=== PATIENT | female | born 1945 | race Caucasian/White ===

== ENCOUNTER 2017-05-11 10:11 | Emergency (ER) | payer OTHER ==
[~2017-05-11] VITALS: Ht 167.6 cm; Wt 75.3 kg
[~2017-05-11 10:11] MED LIST: AMIODARONE HCL100 MG PO; APAP650 PO; ASA81BEC PO; ASPIR 8181 MG PO; ASPIRIN EC81 M1 PO; ATORVASTATIN CA80 MG PO; BAYER CHEWABLE81 MG PO; BETAPACE80 MG PO; CARDIZEM CD120 MG PO; CARDIZEM CD180 MG PO; CARDIZEM CD240 MG PO; COUMADIN 1MG TAB1 M1 PO; COUMADIN 2 MG TA2 M1 PO; COUMADIN 2.5MG2.5 M1 PO; COZAAR 50 MG TA50 M2 PO; EFFIENT10 MG PO; FLONASE 0.05%50 MCG NASAL; HYDROCHLOROTHIA25 M1 PO; HYDROXYZINE HCL25 M2 PO; KLOR-CON 1010 MEQ; KLOR-CON 1010 MEQ PO; LISINOPRIL2.5 MG PO; LOSARTAN POTAS100 MG PO; LOSARTAN POTASS50 MG PO; NITROSTAT0.4 MG SL; PLAVIX 75 MG TA75 M1 PO; POTASSIUM CHLO20 ME1 PO; POTASSIUM20 PO; SORINE 80 MG TA80 M1 PO; SORINE 80 MG TA80 MG PO; SOTALOL 120 MG120 M1 PO; TYLENOL325 MG PO; VITAMIN D1000 UNI1 PO; VITAMIN E400 UNIT PO; WARFARIN SODIUM6 MG PO; ZYRTEC10 M5 PO; ZYRTEC10 MG PO
[2017-05-11] MEDS ORDERED: COUMADIN 3 MG TA3 M1 PO (10:23)
[2017-05-11] MEDS ORDERED: CHLORTHALIDONE25 MG PO (10:25)
[2017-05-11] MEDS ORDERED: OMEPRAZOLE 20 M20 MG PO (10:25)
[2017-05-11] MEDS ORDERED: CLARITIN10 MG PO (10:26)
[2017-05-11 10:33] LABS: ABSOLUTE BASOPHILS 0.1 thou/uL (0.0-0.2); ABSOLUTE EOSINOPHILS 0.1 thou/uL (0.0-0.7); ABSOLUTE LYMPHOCYTES 1.5 thou/uL (0.8-5.3); ABSOLUTE MONOCYTES 0.9 thou/uL (0.0-1.2); ABSOLUTE NEUTROPHILS 5.2 thou/uL (1.6-8.1); BASOPHILS 0.8 %; EOSINOPHILS 0.7 %; HEMATOCRIT 42.1 % (37.0-47.0); LYMPHOCYTES 19.3 %; MCHC 33.2 g/dL (28.0-37.0); MCV 87.2 fL (80.0-100.0); MONOCYTES 11.3 %; MPV 7.6 fl. (7.2-11.1); NUCLEATED RBCS 0 /100WBC; PLATELET COUNT* 288 thou/uL (150-400); POLYS 67.9 %; RBC 4.84 mil/uL (4.20-5.00); RDW-CV 15.2 % (10.5-14.5); WBC 7.6 thou/uL (4.0-11.0)
[2017-05-11 10:40] LABS: ANION GAP 8 mmol/L (7-16); BUN 21 mg/dL (7-18); CALCIUM 9.4 mg/dL (8.5-10.1); CHLORIDE 105 mmol/L (98-107); CO2 29 mmol/L (21-32); GLUCOSE 91 mg/dL (70-99); SODIUM 142 mmol/L (136-145)
[2017-05-11 10:42] LABS: APTT 42.1 Seconds (25.0-31.3); INR 2.9; POTASSIUM 2.9 mmol/L (3.5-5.1); PROTIME 28.1 Seconds (9.20-11.50)
[2017-05-11 10:47] LABS: ALBUMIN 3.7 g/dL (3.4-5.0); ALKALINE PHOSPHATASE 104 U/L (46-116); LIPASE 176 U/L (73-393); SGOT 26 U/L (15-37); SGPT 38 U/L (30-65); TOTAL BILIRUBIN 0.4 mg/dL (<0.1-1.0); TOTAL PROTEIN 7.6 g/dL (6.4-8.2); TROPONIN-I LEVEL <0.06 ng/mL (<0.06)
[2017-05-11] MEDS ORDERED: ANTIVERT25 MG PO (11:53)
[2017-05-11] MEDS ORDERED: ZOFRAN ODT4 M1 PO (11:53)
[2017-05-11 12:06] VITALS: BP 142/79
--- NOTE | 2017-05-12 10:19 | EKG ---
[place] [address] ELECTROCARDIOGRAM REPORT Name: VI STEWARD [id number] Admission: 05/11/17 Attend Phys: Discharge: 05/11/17 Date of : 41 Report #: [id number] THIS REPORT FOR: //name// [facility] ED Test Date: 2017-05-11 Test Time: 10:17:06 Pat Name: VI STEWARD Department: Room: Gender: F Property Insurance Inspector: MEETA : 1945 Requested By: Galdino Fox Order Number: [id number] MD: Tommy Ibarra Measurements Intervals [place] Rate: 64 P: 47 IA: 190 QRS: -12 QRSD: 96 T: 57 QT: 468 QTc: 483 Interpretive Statements Sinus rhythm Borderline ST depression, anterolateral leads Compared to ECG 08/27/2015 11:45:57 no change Electronically Signed On 05-12-2017 10:18:59 EYE CLINIC MANAGER by Tommy Ibarra [email or web address] <ELECTRONICALLY SIGNED> By: Tommy Ibarra MD, [facility] 05/12/17 1018 1017 1017 Tommy Ibarra MD, FACC /EPI
== END 2017-05-11 12:07 | disposition home or self-care (01) ==
LOC: M.ERS 10:11
PROVIDERS: Emergency Medicine Emergency Medical Services
DX: H81.10 Benign paroxysmal vertigo, unspecified ear (principal); R00.2 Palpitations; I10 Essential (primary) hypertension; I48.91 Unspecified atrial fibrillation; E78.5 Hyperlipidemia, unspecified; Z90.710 Acquired absence of both cervix and uterus; Z98.890 Other specified postprocedural states; Z88.2 Allergy status to sulfonamides; Z88.1 Allergy status to other antibiotic agents

== ENCOUNTER 2018-04-08 11:08 | Inpatient (IN) | payer OTHER ==
[~2018-04-08] VITALS: Ht 165.1 cm; Wt 75.6 kg
[~2018-04-08 11:08] MED LIST changes: +ANTIVERT25 MG PO; +CHLORTHALIDONE25 MG PO; +CLARITIN10 MG PO; +COUMADIN 3 MG TA3 M1 PO; +OMEPRAZOLE 20 M20 M1 PO; +ZOFRAN ODT4 M1 PO
[2018-04-08 11:12] VITALS: BP 161/68
--- NOTE | 2018-04-08 11:49 | NUR ---
PT TO CT WARM BLANKET PROVIDED DAUGHTER (BRANT) AT BEDSIDE
[2018-04-08 11:51] LABS: ABSOLUTE BASOPHILS 0.1 thou/uL (0.0-0.2); ABSOLUTE EOSINOPHILS 0.1 thou/uL (0.0-0.7); ABSOLUTE LYMPHOCYTES 1.3 thou/uL (0.8-5.3); ABSOLUTE MONOCYTES 0.8 thou/uL (0.0-1.2); ABSOLUTE NEUTROPHILS 4.7 thou/uL (1.6-8.1); BASOPHILS 0.9 %; EOSINOPHILS 1.3 %; HEMATOCRIT 39.9 % (37.0-47.0); HEMOGLOBIN 13.2 gm/dL (12.0-15.0); MCH 28.4 pg (26.0-34.0); MCHC 33.1 g/dL (28.0-37.0); MCV 85.7 fL (80.0-100.0); MONOCYTES 12.1 %; MPV 8.5 fl. (7.2-11.1); NUCLEATED RBCS 0 /100WBC; PLATELET COUNT* 284 thou/uL (150-400); POLYS 66.7 %; RBC 4.66 mil/uL (4.20-5.00); RDW-CV 15.4 % (10.5-14.5)
[2018-04-08 11:54] LABS: ANION GAP 8 mmol/L (7-16); BUN 24 mg/dL (7-18); CALCIUM 9.3 mg/dL (8.5-10.1); CHLORIDE 105 mmol/L (98-107); CO2 26 mmol/L (21-32); GLUCOSE 80 mg/dL (70-99); POTASSIUM 4.1 mmol/L (3.5-5.1); SODIUM 139 mmol/L (136-145)
[2018-04-08 11:55] LABS: INR 2.1; PROTIME 21.4 Seconds (9.20-11.50)
[2018-04-08 12:00] LABS: ALBUMIN 3.2 g/dL (3.4-5.0); ALKALINE PHOSPHATASE 124 U/L (46-116); SGPT 34 U/L (30-65); TOTAL BILIRUBIN 0.4 mg/dL (<0.1-1.0); TOTAL PROTEIN 7.2 g/dL (6.4-8.2); TROPONIN-I LEVEL <0.06 ng/mL (<0.06)
[2018-04-08 12:01] LABS: SGOT 30 U/L (15-37)
--- NOTE | 2018-04-08 15:00 | EKG ---
[place] [address] ELECTROCARDIOGRAM REPORT Name: VI STEWARD Room: [place] [address] ADM IN [facility].#: [id number] Admission: 04/08/18 Attend Phys: Kamille Schneider Discharge: Date of : 41 Report #: [id number] THIS REPORT FOR: //name// [facility] ED Test Date: 2018-04-08 Test Time: 11:14:04 Pat Name: VI STEWARD Department: Room: [facility] Gender: F Dope Dry House Operator: : 1945 Requested By: Galdino Fox Order Number: [id number] MD: Tommy Ibarra Measurements Intervals [place] Rate: 60 P: 46 MO: 198 QRS: -3 QRSD: 94 T: 47 QT: 464 QTc: 464 Interpretive Statements Sinus rhythm Borderline ST depression, anterolateral leads Compared to ECG 05/11/2017 10:17:06 No significant changes Electronically Signed On 04-08-2018 15:00:18 HOSTESS by Tommy Ibarra [email or web address] <ELECTRONICALLY SIGNED> By: Tommy Ibarra MD, [facility] 04/08/18 1500 1114 13 Tommy Ibarra MD, [facility] /EPI
[2018-04-08 15:03] VITALS: BP 138/72
[2018-04-08 15:25] VITALS: BP 169/73
[2018-04-08] MEDS ORDERED: MIRALAX17 GM PO (16:07)
--- NOTE | 2018-04-08 16:10 | NUR ---
PT ARRIVED TO UNIT AT 1525, REPORT GIVEN BY STORM RN IN ED, PTS DAUGHTER AT BEDSIDE. PT IS A&O X4, UP WITH STANDBY ASSIST, DENIES ANY PAIN, SOA, DIZZINESS, OR CHEST PAIN AT THIS TIME. LS CTA, 98% RA. BS ACTIVE X4, SOFT AND FLAT UPON PALPITATION, PT HAD LUNCH IN ED. 18 GAUGE IV IN RIGHT AC THAT IS ACCESSIBLE. PT IS REQUESTING TO BE DNR. APARTMENT MAINTENANCE TRACING SINUS RHYTHM. CARDOLOGY TO CONSULT.
[2018-04-08 19:30] VITALS: BP 120/55
[2018-04-09] VITALS: BP 103/38
[2018-04-09 02:55] LABS: INR 2.7; PROTIME 27.4 Seconds (9.20-11.50)
[2018-04-09 04:00] VITALS: BP 119/58
[2018-04-09 06:06] LABS: CHOLESTEROL 127 mg/dL (<200); HDL CHOLESTEROL 68 mg/dL (>40); LDL CHOLESTEROL 50 mg/dL (<100); TC:HDL 1.9 Ratio (Not establshd); TRIGLYCERIDE 47 mg/dL (<150); VLDL 9 mg/dL (<40)
[2018-04-09 06:07] LABS: SERUM ASSESSMENT Clear
--- NOTE | 2018-04-09 07:05 | NUR ---
VITALS WNL. SEE MAR. SEE CHARTING. FALL PRECATUIONS IN PLACE. HOURLY ROUNDING FOR SAFETY.
[2018-04-09 08:00] VITALS: BP 135/74
[2018-04-09 12:31] VITALS: BP 135/74
--- NOTE | 2018-04-09 13:33 | CON ---
[address] [address] CONSULTATION Name: VI STEWARD Room: [address] IN M.R.#: [id number] Admission: 04/08/18 Attend Phys: Kamille Schneider Discharge: Date of : 41 Report #: [id number] THIS REPORT FOR: //name// CC: Valentin Wiggins DATE OF SERVICE: 04/08/2018 HISTORY OF PRESENT ILLNESS: The patient is a 72-year-old single white female who I was asked to see in the hospital today after she complained of being dizzy. The patient has an extensive past medical history. She initially presented in 2013 with exertional dyspnea. Apparently, her echocardiogram and nuclear stress test showed no significant abnormalities. Because of exertional dyspnea she underwent cardiac catheterization electively by Dr. Ohara from the right radial artery. No ventriculogram was performed. There was a 50% narrowing of the proximal LAD, 90% narrowing of the mid LAD, circumflex had no significant disease, the right coronary artery had a 50% stenosis. Dr. Otto then inserted a drug-eluting stent in the mid LAD, which she tolerated well. The patient presented in 2013 with palpitations. She came to the hospital and was found to be in atrial fibrillation. She was placed on warfarin and amiodarone. Recently, she has been followed by Dr. Bowen. She had a repeat heart catheterization in 2014. She was complaining of persistent shortness of breath. Dr. Bowen performed a heart catheterization, left ventriculogram was not performed. The stent in the LAD had no restenosis. The circumflex had no significant stenosis. The right coronary artery had no significant stenosis. Medical therapy was recommended. She was last admitted here in 2015 with an episode of atrial fibrillation. She did not require cardioversion. She was actually just seen by my nurse practitioner last August. The patient does have a history of dizzy spells. She saw ENT who thought she had orthostatic hypotension. My nurse practitioner decreased the dose of her diltiazem. The patient did undergo a nuclear stress test last September that showed no evidence of ischemia or previous infarction with an ejection fraction of 80%. The patient states recently she has felt lightheaded. She feels as if the room is spinning. She feels lightheaded when she stands up. She did have an echocardiogram last September that showed ejection fraction of 60%. She does have occasional chest discomfort. She does get short of breath with exertion. She has had no bleeding. She has had no vomiting or diarrhea. She came to the Emergency Room and was admitted for further evaluation and treatment. PAST MEDICAL HISTORY: Significant for hysterectomy and appendectomy. She does have a history of hypertension and hyperlipidemia. No history of diabetes. CURRENT MEDICATIONS: Include amiodarone, aspirin, Lipitor, diltiazem, omeprazole, warfarin. She does [place] [address] CONSULTATION Name: VI STEWARD Room: [address] IN [facility].#: [id number] Admission: 04/08/18 Attend Phys: Kamille Schneider Discharge: Date of : 41 Report #: [id number] ALLERGIES: SHE HAS INTOLERANCE TO SULFA DRUGS. FAMILY HISTORY: Negative for heart disease. SOCIAL HISTORY: She is , lives with a daughter in [place], [place]. Quit smoking years ago. No alcohol abuse. REVIEW OF SYSTEMS: She has had no history of stroke. She has had a goiter in the past. No history of peptic ulcer disease, liver disease, kidney disease, cancer, psychiatric illness, chronic skin condition. PHYSICAL EXAMINATION: GENERAL: Revealed an elderly female lying in bed. She appeared in no acute distress. VITAL SIGNS: She has a blood pressure of 140/70, pulse was 70, she is afebrile. HEENT: She was anicteric, conjunctiva pink. Mucous membranes moist. NECK: Veins do not appear distended. No carotid bruits. Neck supple. CHEST: Clear to auscultation. CARDIAC: Regular rate and rhythm without murmur. ABDOMEN: Soft, nontender. EXTREMITIES: Had no edema. Dorsalis pedis pulse 2+ bilaterally. SKIN: Warm, dry. NEUROLOGIC: Nonfocal. LYMPH: No adenopathy. MUSCULOSKELETAL: No joint effusion. LABORATORY DATA: Her ECG showed a sinus rhythm with nonspecific ST-segment changes. Her workup in the Emergency Room today, she had a CT scan of the head performed that showed no acute abnormality. Chest x-ray showed no acute abnormality, normal heart size, clear lung herzog. Her lab work today, sodium 139, creatinine is 1.0. Troponin 0.06. Her TSH in June a year ago was 2.61. White blood cell count 7.0, hemoglobin 13.2. IMPRESSION AND RECOMMENDATIONS: 1. Lightheadedness, possibly related to amiodarone. I would consider discontinuing it at this time. 2. Coronary artery disease. Nuclear stress test last summer showed no significant ischemia. We will continue aspirin 81 mg a day. 3. Shortness of breath. Reason unclear. 4. Hypertension. The patient is on a calcium blanca. 5. Hyperlipidemia. The patient is on a statin drug. 6. History of goiter. The patient had a previous biopsy. 7. Paroxysmal atrial fibrillation. I would discontinue amiodarone at this time [address] [address] CONSULTATION Name: VI STEWARD Room: [address] IN ..#: [id number] Admission: 04/08/18 Attend Phys: Kamille Schneider Discharge: Date of : 41 Report #: [id number] because of possible side effects. The patient has been chronically anticoagulated with no history of bleeding. Her INR today was 2.1. <ELECTRONICALLY SIGNED> By: Tommy Ibarra MD, FACC 04/09/18 1333 1623 [id number] Ibarra MD, FACC /nt
--- NOTE | 2018-04-09 13:33 | CON ---
[address] [address] CONSULTATION Name: VI STEWARD Room: [address] ADM IN M.R.#: [id number] Admission: 04/08/18 Attend Phys: Kamille Schneider Discharge: Date of : 41 Report #: [id number] THIS REPORT FOR: //name// CC: Valentin Wiggins DATE OF SERVICE: 04/08/2018 HISTORY OF PRESENT ILLNESS: The patient is a 72-year-old single white female who I was asked to see in the hospital today after she complained of being dizzy. The patient has an extensive past medical history. She has had multiple hospitalizations here at [place]. She was seen by Dr. Ohara back in 2013. Dictation ends here. <ELECTRONICALLY SIGNED> By: Tommy Ibarra MD, FACC 04/09/18 1333 1613 [id number] Ibarra MD, FACC /nt
--- NOTE | 2018-04-09 15:19 | NUR ---
order received to discharge patinet home to self care. med rec, medication edcuation and need for follow up appointments covered with patient and daughter. iv and telemetry pack removed. hourly rrounding completd for patinet safety. patient taken via wheelchair with daughter present. hourly rounding completd for patinet safety. discharge time of 13:25.
== END 2018-04-09 13:25 | disposition home or self-care (01) | DRG 303 ==
LOC: M.ERS 11:08 → M.2W 12:14 → M.TBA-ER 12:14 → M.2W 15:17
PROVIDERS: Emergency Medicine Emergency Medical Services; Internal Medicine Cardiovascular Disease; ADMIT Internal Medicine
DX: I25.110 Atherosclerotic heart disease of native coronary artery with unstable angina pectoris (principal); I10 Essential (primary) hypertension; I48.0 Paroxysmal atrial fibrillation; E78.5 Hyperlipidemia, unspecified; Z95.5 Presence of coronary angioplasty implant and graft; Z90.710 Acquired absence of both cervix and uterus; Z90.49 Acquired absence of other specified parts of digestive tract; Z88.2 Allergy status to sulfonamides; Z88.8 Allergy status to other drugs, medicaments and biological substances; Z87.891 Personal history of nicotine dependence; Z79.82 Long term (current) use of aspirin; Z79.899 Other long term (current) drug therapy

== ENCOUNTER → 2018-05-20 | Outpatient (CLI) | payer OTHER ==
[~2018-05-20] MED LIST changes: +MIRALAX17 GM PO
== END ==
LOC: M.RAD 05-14 13:24
DX: Z12.31 Encounter for screening mammogram for malignant neoplasm of breast (principal); Z13.820 Encounter for screening for osteoporosis; Z78.0 Asymptomatic menopausal state

== ENCOUNTER 2019-06-28 15:10 | Inpatient (IN) | payer MEDICARE ==
[~2019-06-28] VITALS: Ht 167.6 cm; Wt 75.1 kg
[~2019-06-28 15:10] MED LIST changes: -VITAMIN D1000 UNI1 PO; +VITAMIN D31250 MCG PO
[2019-06-28 15:19] VITALS: BP 148/78
[2019-06-28 15:29] LABS: ABSOLUTE BASOPHILS 0.1 thou/uL (0.0-0.2); ABSOLUTE EOSINOPHILS 0.1 thou/uL (0.0-0.7); ABSOLUTE MONOCYTES 0.9 thou/uL (0.0-1.2); ABSOLUTE NEUTROPHILS 4.6 thou/uL (1.6-8.1); BASOPHILS 1.2 %; EOSINOPHILS 1.5 %; HEMATOCRIT 40.4 % (37.0-47.0); HEMOGLOBIN 13.6 gm/dL (12.0-15.0); LYMPHOCYTES 25.9 %; MCH 29.3 pg (26.0-34.0); MCHC 33.7 g/dL (28.0-37.0); MONOCYTES 11.7 %; NUCLEATED RBCS 0 /100WBC; PLATELET COUNT* 280 thou/uL (150-400); POLYS 59.7 %; RBC 4.64 mil/uL (4.20-5.00); RDW-CV 14.7 % (10.5-14.5); WBC 7.7 thou/uL (4.0-11.0)
[2019-06-28 15:40] LABS: CALCIUM 8.5 mg/dL (8.5-10.1); POTASSIUM 3.4 mmol/L (3.5-5.1)
[2019-06-28 15:54] LABS: ALBUMIN 3.6 g/dL (3.4-5.0); CK-MB MASS 0.9 ng/mL (<0.5-3.6); TOTAL BILIRUBIN 0.3 mg/dL (<0.1-1.0); TOTAL PROTEIN 7.4 g/dL (6.4-8.2)
[2019-06-28 15:55] LABS: APTT 45.3 Seconds (25.0-31.3); INR 4.1
--- NOTE | 2019-06-28 17:26 | CON ---
[address] [address] CONSULTATION Name: BINVI R Room: [place] [address] ADM IN .R.#: [id number] Admission: 06/28/19 Attend Phys: Linda Reyes MD Discharge: Date of : 41 Report #: [id number] THIS REPORT FOR: //name// cc: Tiago Hanson MD, Matthew W. MD ~ THIS REPORT FOR: //name// CC: Jaydon Hanson DATE OF SERVICE: 06/28/2019 CARDIOLOGY CONSULTATION HISTORY OF PRESENT ILLNESS: The patient is a 73-year-old single white female who came to the Emergency Room complaining of palpitations. The patient has an extensive past medical history. She presented with atrial fibrillation years ago that was detected on a 30-day monitor. She was placed on amiodarone and warfarin. She has been on warfarin since that time. She has had no significant bleeding. She does have her INR checked frequently. However in the past, she complained of lightheadedness and was taken off of the amiodarone. She was found to have coronary artery disease, had a stent placed in LAD in 2013. Repeat heart catheterization in 2014 showed the stent was widely patent. She does not exercise on a regular basis. For the past few weeks, she has noticed intermittent palpitations lasting about an hour. It can make her lightheaded. Today that persisted. She felt diaphoretic, lightheaded. Finally, came to the Emergency Room. She was found to be in atrial fibrillation. She is admitted for further evaluation and treatment. She denies any chest pressure radiating to her arms or jaw. She has had no syncope or bleeding. Denied any recent fever or cough. She does have seasonal allergy. PAST MEDICAL HISTORY: Significant for previous appendectomy, hysterectomy, hypertension, hyperlipidemia. MEDICATIONS: Include diltiazem, Imdur, Prilosec, Paxil, warfarin, Lipitor. ALLERGIES: SHE HAS AN ALLERGY TO SULFA DRUGS. FAMILY HISTORY: Negative for heart disease. SOCIAL HISTORY: She is single, lives with daughter in [place]. Quit smoking years ago. No alcohol abuse. REVIEW OF SYSTEMS: No history of stroke, GI bleeding, liver disease, kidney disease, cancer, psychiatric illness, [place] [address] CONSULTATION Name: VI STEWARD Room: [address] IN [facility]#: [id number] Admission: 06/28/19 Attend Phys: Linda Reyes MD Discharge: Date of : 41 Report #: [id number] PHYSICAL EXAMINATION: GENERAL: Revealed an elderly female, appeared in no distress. VITAL SIGNS: She had a blood pressure of 110/70, pulse is 120. She is afebrile. HEENT: She was anicteric. Conjunctivae pink. Mucous membranes moist. NECK: Veins nondistended. Neck supple. CHEST: Clear to auscultation. CARDIOVASCULAR: Irregular rhythm. No significant murmur. ABDOMEN: Soft. EXTREMITIES: Had no edema. SKIN: Warm and dry. NEUROLOGIC: Nonfocal. RADIOLOGICAL DATA: Her ECG on admission showed atrial fibrillation with increased ventricular response rate, nonspecific ST and T-wave change. Her workup in the Emergency Room today, she had a portable chest x-ray that showed normal heart size, clear lung herzog. LABORATORY DATA: Today, sodium 141, potassium 3.4, creatinine 1.0. Liver function studies were normal. Troponin 0.06. BNP 264. Her INR was 4.1. White blood cell count 7.7, hemoglobin 13.6. IMPRESSION AND RECOMMENDATIONS: 1. Atrial fibrillation. I would recommend starting sotalol. If she does not convert, we will consider cardioversion. I will continue anticoagulation, maintain an INR of 2-3. 2. Coronary artery disease. No significant angina. Nuclear stress test in 2018 showed no ischemia. 3. Hyperlipidemia. The patient is on a statin drug. 4. Previous tobacco abuse. <ELECTRONICALLY SIGNED> By: Tommy Ibarra MD, FACC 06/28/19 1726 1626 [id number] Ibarra MD, FACC /nt
[2019-06-28 19:27] VITALS: BP 118/69
[2019-06-28 20:00] VITALS: BP 115/68
[2019-06-28] MEDS ORDERED: TRAMADOL 50 MG50 MG PO (20:03)
[2019-06-28] MEDS ORDERED: ACETAMINOPHEN500 M1 PO (20:04)
[2019-06-28] MEDS ORDERED: IMDUR 30 MG TAB30 M1 PO (20:05)
[2019-06-28] MEDS ORDERED: PAXIL 20 MG TAB20 MG PO (20:06)
[2019-06-28] MEDS ORDERED: CALCIUM500 MG PO (20:06)
[2019-06-28 21:29] VITALS: BP 129/81
[2019-06-29] VITALS (7 sets, daily range): BP systolic 90–122; BP diastolic 45–62
[2019-06-29 05:29] LABS: HEMATOCRIT 37.5 % (37.0-47.0); HEMOGLOBIN 12.7 gm/dL (12.0-15.0); MCH 29.4 pg (26.0-34.0); MCV 86.5 fL (80.0-100.0); MPV 8.1 fl. (7.2-11.1); RBC 4.33 mil/uL (4.20-5.00); RDW-CV 14.4 % (10.5-14.5); WBC 7.1 thou/uL (4.0-11.0)
[2019-06-29 05:36] LABS: INR 3.2; PROTIME 31.5 Seconds (9.20-11.50)
[2019-06-29 05:44] LABS: ALBUMIN 3.1 g/dL (3.4-5.0); ALKALINE PHOSPHATASE 79 U/L (46-116); ANION GAP 11 mmol/L (7-16); BUN 19 mg/dL (7-18); CALCIUM 8.7 mg/dL (8.5-10.1); CHLORIDE 107 mmol/L (98-107); CHOLESTEROL 140 mg/dL (<200); CO2 25 mmol/L (21-32); GLUCOSE 98 mg/dL (70-99); HDL CHOLESTEROL 61 mg/dL (>40); LDL CHOLESTEROL 71 mg/dL (<100); MAGNESIUM 2.2 mg/dL (1.8-2.4); POTASSIUM 4.1 mmol/L (3.5-5.1); SGOT 15 U/L (15-37); SGPT 21 U/L (30-65); SODIUM 143 mmol/L (136-145); TC:HDL 2.3 Ratio (Not establshd); TOTAL BILIRUBIN 0.3 mg/dL (<0.1-1.0); TOTAL PROTEIN 6.6 g/dL (6.4-8.2); TRIGLYCERIDE 41 mg/dL (<150); VLDL 8 mg/dL (<40)
[2019-06-29 05:45] LABS: SERUM ASSESSMENT Clear
--- NOTE | 2019-06-29 07:11 | NUR ---
RECEIVED REPORT FROM OPTICAL SYSTEMS ENGINEERLISSY MCCARTHY AT 192. PT ARRIVED TO UNIT AT 1940. NURSING ASSESSMENT COMPLETED AT START OF SHIFT. PT AFIB ON BENCH ASSEMBLY INSPECTOR. HOURLY ROUNDING COMPLETED. PT C/O PAIN, PRN PAIN MEDICATION ADMINISTERED, EFFECTIVE. CALL LIGHT WITHIN REACH.
--- NOTE | 2019-06-29 11:39 | EKG ---
[place] [address] ELECTROCARDIOGRAM REPORT Name: VI STEWARD Room: [address] ADM IN .R.#: [id number] Admission: 06/28/19 Attend Phys: Linda Reyes, Discharge: Date of : 41 Date of Service: 06/28/19 1516 Report #: [id number] THIS REPORT FOR: //name// [facility] ED Test Date: 2019-06-28 Test Time: 15:16:01 Pat Name: VI STEWARD Department: Room: [facility] Gender: F Couturiere: LENNY : 1945 Requested By: Jaydon Mckinnon Order Number: [id number] MD: Brady Bowen Measurements Intervals [place] Rate: 129 P: [place]: QRS: -5 QRSD: 81 T: 127 QT: 296 QTc: 434 Interpretive Statements Atrial fibrillation Repol abnrm suggests ischemia, diffuse leads Compared to ECG 04/08/2018 11:14:04 Early repolarization now present Possible ischemia now present Sinus rhythm no longer present ST (T wave) deviation no longer present Electronically Signed On 06-29-2019 11:37:56 CDT by Brady Bowen [email or web address] <ELECTRONICALLY SIGNED> By: Brady Bowen MD, FACC 06/29/19 1137 1516 1516 Brady Bowen MD, FACC /EPI
--- NOTE | 2019-06-29 11:40 | EKG ---
[place] [address] ELECTROCARDIOGRAM REPORT Name: VI STEWARD Room: [address] IN [facility]#: [id number] Admission: 06/28/19 Attend Phys: Linda Reyes, Discharge: Date of : 41 Date of Service: 06/29/198[address] Report #: [id number] THIS REPORT FOR: //name// [facility] Test Date: 2019-06-29 Test Time: 08:12:18 Pat Name: VI STEWARD Department: Room: [facility] Gender: F Towel Inspector: : 1945 Requested By: Tommy Ibarra Order Number: [id number] Isaca MD: Brady Bowen Measurements Intervals [place] Rate: 46 P: 55 [place]: 188 QRS: 3 QRSD: 90 T: 87 QT: 482 QTc: 422 Interpretive Statements Sinus bradycardia Minimal ST depression, anterolateral leads Compared to ECG 04/08/2018 11:14:04 Sinus rhythm no longer present ST (T wave) deviation still present Electronically Signed On 06-29-2019 11:39:04 CDT by Brady Bowen [email or web address] <ELECTRONICALLY SIGNED> By: Brady Bowen MD, FACC 06/29/19 1139 1 1 Brady Bowen MD, [facility] /EPI
--- NOTE | 2019-06-29 14:28 | NUR ---
CM spoke with Pt's dtr via phone. Pt resides at home with her dtr, Kiki. Pt is independent. No DME. No hx of HH or SNF. Pt to have stress test today, anticipate dc to home tomorrow. Dtr to provide dc transportation. Following.
--- NOTE | 2019-06-29 19:06 | NUR ---
RECEIVED REPORT FROM ADA YUAN. ASSUMED CARE AROUND 0730. PT A&O X4. AM ASSESSMENT AND VITALS COMPLETED CHARTED. SOIL CONSERVATION TEACHER IN PLACE TRACING SB NOW WITH SOME PAC'S; CARDIOLOGY AWARE THAT PT CONVERTED. PT TOLERATING DIET. UP AD SAMANTHA. PLAN IS FOR PT TO HAVE STRESS TEST IN THE AM. PT HAS DENIED PAIN THIS SHIFT. PT CURRENTLY SITTING IN BEDSIDE CHAIR WATCHING TV. LOW FALL RISK PRECAUTIONS IN PLACE. CALL LIGHT IS WITHIN REACH. HOURLY ROUNDING PERFORMED.
[2019-06-30 02:07] LABS: GLYCOHEMOGLOBIN (HGB A1C) 5.5 % (4.8-5.6)
[2019-06-30 04:00] VITALS: BP 121/64
--- NOTE | 2019-06-30 06:52 | NUR ---
ASSUMED PT CARE AT 1910. NURSING ASSESSMENT COMPLETED AT START OF SHIFT. PT VOICED NO CONCERNS THIS SHIFT. SR/SB ON CASEWORKER INTAKE. CALL LIGHT WITHIN REACH.
[2019-06-30 07:21] LABS: HEMATOCRIT 35.4 % (37.0-47.0); HEMOGLOBIN 12.1 gm/dL (12.0-15.0); MCH 29.6 pg (26.0-34.0); MCHC 34.1 g/dL (28.0-37.0); MCV 86.8 fL (80.0-100.0); MPV 8.1 fl. (7.2-11.1); RBC 4.08 mil/uL (4.20-5.00); RDW-CV 14.7 % (10.5-14.5); WBC 5.6 thou/uL (4.0-11.0)
[2019-06-30 07:32] LABS: INR 2.2; PROTIME 21.8 Seconds (9.20-11.50)
[2019-06-30 07:37] LABS: CALCIUM 8.7 mg/dL (8.5-10.1); CREATININE 0.9 mg/dL (0.6-1.3); MAGNESIUM 2.1 mg/dL (1.8-2.4); POTASSIUM 4.2 mmol/L (3.5-5.1)
[2019-06-30 07:45] VITALS: BP 134/72
--- NOTE | 2019-06-30 08:54 | EKG ---
[place] [address] ELECTROCARDIOGRAM REPORT Name: VI STEWARD Room: [address] ADM IN [facility].#: [id number] Admission: 06/28/19 Attend Phys: Linda Reyes, Discharge: Date of : 41 Date of Service: 06/30/1903 Report #: [id number] THIS REPORT FOR: //name// [facility] Test Date: 2019-06-30 Test Time: 08:03:37 Pat Name: VI STEWARD Department: Room: [address] Gender: F Bag Turner: : 1945 Requested By: Tommy Ibrara Order Number: [id number] Isaac MD: Tommy Ibarra Measurements Intervals [place] Rate: 52 P: 60 AR: 188 QRS: 3 QRSD: 88 T: 67 QT: 474 QTc: 441 Interpretive Statements Sinus bradycardia Borderline repolarization abnormality Compared to ECG 06/29/2019 08:12:18 no change Electronically Signed On 06-30-2019 8:53:24 CDT by Tommy Ibarra [email or web address] <ELECTRONICALLY SIGNED> By: Tommy Ibarra MD, [facility] 06/30/19 0853 2 2 Tommy Ibarra MD, [facility] /EPI
--- NOTE | 2019-06-30 12:30 | NUR ---
Per VENTILATING EQUIPMENT INSTALLER, plan dc tomorrow to home. Pt to have stress test today.
--- NOTE | 2019-06-30 12:44 | NUR ---
Cardiac Rehab Atrial Fib education completed with receptive patient. Education included what is AF, signs and symptoms, treatments and possible complications. Patient states understanding of education.
--- NOTE | 2019-06-30 16:13 | CARDNUC ---
[place] [address] CARDIAC NUCLEAR IMAGING REPORT Name: BINVI R Room: [address] IN [facility]#: [id number] Admission: 06/28/19 Attend Phys: Linda Reyes, Discharge: Date of : 41 Date of Service: 06/30/19 1611 Report #: [id number] THIS REPORT FOR: cc: Tiago Hanson MD, Matthew W. MD Liston, Michael J. MD [facility] ~ APPROVED REPORT Imaging Protocol: Rest Tc-99m/Stress Tc-99m 1 day Study performed: 06/30/2019 10:01:16 Indication: Chest pain, AFIB with RVR, Lightheadedness, Diaphoresis. Patient Location: In-Patient Room #: 215 Stress Tech: Kiki Hawkins Stress Nurse: Hina Schulte RN NM Tech:BENI Omer Ht: 5 ft 6 in Wt: 158 lbs BSA: 1.81 m2 BMI: 25.49 Medical History Medical History: Angina, Atrial Fibrillation, CAD s/p stent, HTN, Hyperlipidemia, Smoking, RVR, Lightheadedness, Diaphoresis, Bradycardia, Hip pain. Medications: Atorvastatin, Sotalol. Allergies: Sulfamethoxazole, Trimethoprim. Cardiac Risk Factors: Age, HTN, Hyperlipidemia, Past Smoker, AFib with RVR, Bradycardia. Previous Cardiac Procedures: PCI. Pretest Chest Pain Characteristics: No chest pain Exercise History: Sedentary Physical Disabilities: Hip pain, unstable gait, recent AFib. Meds Held (24 hrs): None Resting Data Rest SPECT myocardial perfusion imaging was performed in supine position 30 minutes following the intravenous injection of 10.7 mCi of Tc-99m Sestamibi. Time of rest injection: 824 Date: 06/30/2019 The images were gated to evaluate regional wall motion and calculate left ventricular ejection fraction. Administration Route: [place] [address] CARDIAC NUCLEAR IMAGING REPORT Name: VI STEWARD Room: [address] IN [facility]#: [id number] Admission: 06/28/19 Attend Phys: Linda Reyes, Discharge: Date of : 41 Date of Service: 06/30/19 1611 Report #: [id number] Administration Site: Right AC Pharmacologic Stress Pharmacologic stress test was performed by injecting Regadenoson 0.4 mg IV push over 10-15 seconds immediately followed by the intravenous injection of 29.9 mCi of Tc-99m Sestamibi. Time of stress injection: 1009 Date: 06/30/2019 Administration Route: IV Administration Site: Right AC Gated Stress SPECT was performed 40 minutes after stress injection. The images were gated to evaluate regional wall motion and calculate left ventricular ejection fraction. Prone imaging was performed. Stress Test Details Stress Test: Pharmacologic stress testing performed using 0.4 mg of regadenoson per 5 mL given IV over 10 seconds. Reason for pharmacologic stress test: Recent AFib, hip pain, unstable gait.. HR Max Heart Rate (APMHR): 145 bpm Resting HR: 50 bpm Target HR (85% APMHR): 123 bpm Max HR Achieved: 86 bpm % of APMHR: 59 Recovery HR: 64 bpm BP Resting BP: 144/82 mmHg Max BP: 132/84 mmHg Recovery BP: 164/88 mmHg ECG Resting ECG: Sinus Rhythm Stress ECG: Sinus Rhythm ST Change: None Arrhythmia: None Recovery ECG: Sinus Rhythm Recovery ST Change: None Recovery Arrhythmia: None Clinical Reason for Termination: Completed protocol Stress Symptoms: Blurred vision, Dyspnea, Headache, Dizziness. Exercise duration: 00 min 00 sec Exercise capacity: 1.00 [place] [address] CARDIAC NUCLEAR IMAGING REPORT Name: BINVI Araceli Room: [address]#: [id number] Admission: 06/28/19 Attend Phys: Linda Reyes, Discharge: Date of : 41 Date of Service: 06/30/19 1611 Report #: [id number] The patient tolerated Lexiscan infusion without significant cardiac symptoms. Nurse Comments A 73 year old female impatient presented for a sitting Lexiscan r/t recent AFib with RVR, dizziness, diaphoresis. Test well tolerated. Recovery unremarkable. Patient was escorted by staff via wheelchair to Nuclear Medicine for imaging. Patient was stable and stated she felt good at that time. Stress ECG Conclusion The baseline 12-lead EKG shows sinus rhythm without significant ST segment abnormality. EKGs obtained during and post Lexiscan infusion show sinus rhythm without significant ST segment changes. There were no stress-induced arrhythmias. Study Quality Study: Good Artifact: No artifact Study Data At rest, the left ventricular ejection fraction was 65%.. Post stress, the left ventricular ejection was 67%.. TID = 0.90. Perfusion Perfusion images show no defect to suggest infarct or ischemia. Wall Motion On gated studies the left ventricle exhibits normal wall motion. Nuclear Conclusion ECG Findings: negative for ischemia Clinical Findings: negative for ischemia Nuclear Findings: negative for ischemia Exercise Capacity: not assessed Left Ventricular Function: normal Risk Study: low Perfusion images show no defect to suggest infarct or ischemia. Left ventricular systolic function appears normal on gated studies. This is a low risk study. <Conclusion> The baseline 12-lead EKG shows sinus rhythm without significant ST segment abnormality. EKGs obtained during and post [place] [address] CARDIAC NUCLEAR IMAGING REPORT Name: VI STEWARD Room: [address] [place] [facility]#: [id number] Admission: 06/28/19 Attend Phys: Linda Reyes, Discharge: Date of : 41 Date of Service: 06/30/19 1611 Report #: [id number] show sinus rhythm without significant ST segment changes. There were no stress-induced arrhythmias. <ELECTRONICALLY SIGNED> By: Brady Bowen MD, FACC 06/30/191610 10 10 Brady Bowen MD, FACC /INF
[2019-06-30 19:14] VITALS: BP 133/66
--- NOTE | 2019-06-30 19:16 | NUR ---
RECEIVED REPORT FROM ADA YUAN. ASSUMED CARE OF PT AROUND 0730. PT A&O X4. CASH ACCOUNTING CLERK IN PLACE. AM ASSESSMENT AND VITALS COMPLETED CHARTED. IV INTACT. MEDS PER EMAR. PT COMPLETED STRESS TEST THIS SHIFT. TOLERATING DIET. NO COMPLAINTS OF PAIN THIS SHIFT. PT TO GO HOME TOMORROW. PT CURRENTLY RESTING IN BEDSIDE CHAIR. FALL PRECATUIONS IN PLACE. CALL LIGHT IS WITHIN REACH. LOW FALL RISK PRECAUTIONS IN PLACE.
[2019-06-30 20:30] VITALS: BP 123/75
[2019-07-01] VITALS: BP 129/62
[2019-07-01 04:00] VITALS: BP 124/62
[2019-07-01 05:28] LABS: ABSOLUTE EOSINOPHILS 0.1 thou/uL (0.0-0.7); ABSOLUTE MONOCYTES 0.8 thou/uL (0.0-1.2); ABSOLUTE NEUTROPHILS 3.5 thou/uL (1.6-8.1); BASOPHILS 0.6 %; EOSINOPHILS 1.3 %; HEMATOCRIT 38.3 % (37.0-47.0); HEMOGLOBIN 12.6 gm/dL (12.0-15.0); LYMPHOCYTES 31.1 %; MCV 87.9 fL (80.0-100.0); MONOCYTES 12.7 %; MPV 8.3 fl. (7.2-11.1); NUCLEATED RBCS 0 /100WBC; PLATELET COUNT* 241 thou/uL (150-400); POLYS 54.3 %; RBC 4.36 mil/uL (4.20-5.00); RDW-CV 14.6 % (10.5-14.5); WBC 6.4 thou/uL (4.0-11.0)
[2019-07-01 05:36] LABS: INR 1.5; PROTIME 14.9 Seconds (9.20-11.50)
[2019-07-01 05:47] LABS: ALBUMIN 3.1 g/dL (3.4-5.0); CALCIUM 8.7 mg/dL (8.5-10.1); POTASSIUM 4.1 mmol/L (3.5-5.1); TOTAL BILIRUBIN 0.3 mg/dL (<0.1-1.0); TOTAL PROTEIN 6.5 g/dL (6.4-8.2)
[2019-07-01 07:00] VITALS: BP 136/80
--- NOTE | 2019-07-01 08:58 | NUR ---
INITAL ASSESSMENT COMPLETED CHARTED. VSS. TRACING SR ON MONITOR. PT DENIES PAIN, N/V/D, SOA, CP. NO NEW CONCERNS AT THIS TIME. HOURLY ROUNDING IN PLACE FOR PT SAFETY. CLWR.
[2019-07-01] MEDS ORDERED: SORINE 80 MG TA80 MG PO (09:08)
[2019-07-01 09:16] VITALS: BP 136/80
--- NOTE | 2019-07-01 13:29 | EKG ---
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
== END 2019-07-01 10:57 | disposition home or self-care (01) | DRG 309 ==
LOC: M.ERS 15:10 → M.2W 16:00 → M.TBA-ER 16:00 → M.2W 20:02
PROVIDERS: Family Medicine; Internal Medicine Cardiovascular Disease; Nurse Practitioner; ADMIT Internal Medicine
DX: I48.91 Unspecified atrial fibrillation (principal); D68.59 Other primary thrombophilia; I10 Essential (primary) hypertension; E78.5 Hyperlipidemia, unspecified; I25.10 Atherosclerotic heart disease of native coronary artery without angina pectoris; Z90.49 Acquired absence of other specified parts of digestive tract; Z90.710 Acquired absence of both cervix and uterus; Z88.2 Allergy status to sulfonamides; Z88.8 Allergy status to other drugs, medicaments and biological substances; Z95.5 Presence of coronary angioplasty implant and graft; Z79.899 Other long term (current) drug therapy

== ENCOUNTER 2019-08-01 15:17 | Inpatient (IN) | payer MEDICARE ==
[~2019-08-01] VITALS: Ht 167.6 cm; Wt 77.4 kg
[~2019-08-01 15:17] MED LIST changes: +ACETAMINOPHEN500 M1 PO; +CALCIUM500 MG PO; +IMDUR 30 MG TAB30 M1 PO; +PAXIL 20 MG TAB20 MG PO; +TRAMADOL 50 MG50 MG PO
[2019-08-01 15:21] VITALS: BP 118/60
[2019-08-01 15:41] LABS: ABSOLUTE BASOPHILS 0.1 thou/uL (0.0-0.2); ABSOLUTE EOSINOPHILS 0.1 thou/uL (0.0-0.7); ABSOLUTE MONOCYTES 0.9 thou/uL (0.0-1.2); WBC 8.2 thou/uL (4.0-11.0)
[2019-08-01 15:42] LABS: HEMOGLOBIN 13.6 gm/dL (12.0-15.0)
[2019-08-01 15:46] LABS: ABSOLUTE LYMPHOCYTES 2.3 thou/uL (0.8-5.3); ABSOLUTE NEUTROPHILS 4.8 thou/uL (1.6-8.1); BASOPHILS 1.4 %; EOSINOPHILS 1.3 %; HEMATOCRIT 39.8 % (37.0-47.0); LYMPHOCYTES 28.6 %; MCH 29.7 pg (26.0-34.0); MCHC 34.2 g/dL (28.0-37.0); MCV 86.9 fL (80.0-100.0); MONOCYTES 10.6 %; MPV 8.5 fl. (7.2-11.1); NUCLEATED RBCS 0 /100WBC; PLATELET COUNT* 262 thou/uL (150-400); POLYS 58.1 %; RBC 4.58 mil/uL (4.20-5.00); RDW-CV 14.4 % (10.5-14.5)
[2019-08-01 15:48] LABS: CALCIUM 8.5 mg/dL (8.5-10.1); CREATININE 1.2 mg/dL (0.6-1.3); POTASSIUM 3.8 mmol/L (3.5-5.1)
[2019-08-01 15:49] LABS: APTT 38.3 Seconds (25.0-31.3); INR 2.4
[2019-08-01 15:58] LABS: ALBUMIN 3.5 g/dL (3.4-5.0); MAGNESIUM 2.1 mg/dL (1.8-2.4); TOTAL BILIRUBIN 0.3 mg/dL (<0.1-1.0); TOTAL PROTEIN 7.3 g/dL (6.4-8.2)
[2019-08-01 17:41] VITALS: BP 115/80
[2019-08-01 18:00] VITALS: BP 138/78
[2019-08-01 18:30] VITALS: BP 138/78
--- NOTE | 2019-08-01 18:55 | NUR ---
PT A&OX4, UNCONTROLLED AFIB ON TELE, VS OTHERWISE STABLE, PT ARRIVED ON THE UNIT AROUND 1750, REC REPORT FROM LISSY MEZA FROM ER, ADMISSION COMPLETE, STAND BY ASSIST AMBULATING, ROOM AIR, CARDIZEM DRIP, 10MG/HR- TITRATE TO 5MG/HR IF HR<70 OR SYSTOLIC PB<100. HOURLY ROUNDING PERFORMED, POSSESSIONS AND CALL LIGHT WITHIN REACH.REPORTS RIGHT HIP PAIN ALLEVIATED BY TYLENOL AND TRAMADOL.
[2019-08-01 20:00] VITALS: BP 124/56
[2019-08-02 00:31] VITALS: BP 117/63
[2019-08-02 04:00] VITALS: BP 106/57
--- NOTE | 2019-08-02 04:36 | NUR ---
ASSUMED PT CARE AT APPROX 1930. PT IS AWAKE AND ORIENTED X4. PT IS TRACING AFIB ON THE CASH APPLICATION CLERK-RATE IS MORE CONTROLLED BETWEEN 80-100 AT 5mL/hr OF CARDIZEM. PT DENIES CHEST PAIN/DISCOMFORT. PT C/O THOUGH OF RT HIP PAIN THAT RADIATES TO THE RIGHT KNEE, PARTIALLY RELIEVED BY PAIN MEDS GIVEN PER MAR. NO ACUTE CHANGES OVERNIGHT. WILL CONTINUE TO MONITOR PT.
[2019-08-02 06:11] LABS: INR 2.7; PROTIME 26.7 Seconds (9.20-11.50)
[2019-08-02 08:00] VITALS: BP 109/65
[2019-08-02 11:30] VITALS: BP 107/59
--- NOTE | 2019-08-02 14:09 | EKG ---
[place] [address] ELECTROCARDIOGRAM REPORT Name: VI STEWARD Room: [address] ADM IN [facility].#: [id number] Admission: 08/01/19 Attend Phys: Montez Wiggins Discharge: Date of : 41 Date of Service: 08/01/19 1520 Report #: [id number] THIS REPORT FOR: //name// [facility] ED Test Date: 2019-08-01 Test Time: 15:20:27 Pat Name: VI STEWARD Department: Room: [facility] Gender: F Summer Clerk: BRIAN : 1945 Requested By: Galdino Fox Order Number: [id number] MD: Tommy Ibarra Measurements Intervals [place] Rate: 151 P: PA: QRS: -11 QRSD: 84 T: 139 QT: 299 QTc: 475 Interpretive Statements Atrial fibrillation with rapid V-rate Repolarization abnormality, prob rate related Compared to ECG 07/01/2019 08:47:45 Early repolarization now present Sinus bradycardia no longer present Electronically Signed On 08-02-2019 14:07:53 CDT by Tommy Ibarra [email or web address] <ELECTRONICALLY SIGNED> By: Tommy Ibarra MD, [facility] 08/02/19 1407 1520 1520 Tommy Ibarra MD, [facility] /EPI
--- NOTE | 2019-08-02 14:55 | NUR ---
ASSUMED CARE OF PATIENT THIS AM AT 0730. PATIENT IS ALERT AND ORIENTED X 4. SHE DENIES CHEST PAIN AND SOA. PATIENT IS UP TO BR WITH STANDBY ASSIST. PATIENT WAS ON CARDIZEM GTT THIS AM AT 5 ML HR. THIS AM'S HEART RHYTHM WAS A FIB HER HEART RHYTHM CONVERTED TO SINUS CAYLA AT ABOUT 10:[address] NOTIFIED AND AN EKG WAS DONE. CARDIOLOGY IN TO SEE PATIENT THIS AFTERNOON. PATIENT IS RESTING AT THIS TIME. WILL CONTINUE TO MONITOR. NO FALLS OR INJURY.
[2019-08-02 16:00] VITALS: BP 115/60
[2019-08-02 19:40] VITALS: BP 115/74
[2019-08-03] VITALS (7 sets, daily range): BP systolic 126–157; BP diastolic 49–74
[2019-08-03 03:07] LABS: T7 1.6 (1.2-4.9)
[2019-08-03 05:21] LABS: INR 2.1; PROTIME 20.7 Seconds (9.20-11.50)
--- NOTE | 2019-08-03 05:59 | NUR ---
PATIENT PROGRESSING TOWARDS GOALS: PATIENT REMAINS IN SR/SB. ANTICIPATING DISCHARGE HOME TODAY. RECEIVED ACETAMINOPHEN FOR TYLENOL WITH RELIEF. CALL LIGHT WITHIN REACH
--- NOTE | 2019-08-03 08:06 | CON ---
[address] [address] CONSULTATION Name: VI STEWARD Room: [address] IN M.R.#: [id number] Admission: 08/01/19 Attend Phys: Kamille Schneider Discharge: Date of : 41 Report #: [id number] THIS REPORT FOR: //name// cc: Tiago Hanson MD, Matthew W. MD ~ THIS REPORT FOR: //name// CC: Tiago Wiggins DATE OF SERVICE: 08/02/2019 CARDIOLOGY CONSULTATION HISTORY OF PRESENT ILLNESS: I was asked by Dr. Wiggins to see this 73-year-old white female in Cardiology consultation for evaluation and treatment of paroxysmal atrial fibrillation with a rapid ventricular response. This lady additionally has coronary artery disease and previous coronary stent. She is chronically anticoagulated with Coumadin. She chronically takes sotalol. She was here about a month ago and was with atrial fibrillation and was placed on sotalol 40 mg b.i.d. Apparently, she had been on amiodarone in the past. At this time, she came in with new onset of atrial fibrillation yesterday. She can feel her atrial fibrillation when she has it. She does not have chest pain, but she does have a very minimal chest discomfort, feeling when she has her atrial fibrillation that she can feel palpitations. She was placed on a diltiazem drip because she had a rapid ventricular response and she has converted to sinus rhythm now. When she was in atrial fibrillation, her EKG did show some ST-T abnormalities that were probably rate related. She did not have any frankly anginal chest pain, however. At that time, her heart rate was 151. Today, she is in sinus rhythm and her EKG shows heart rate of 47 that was immediately after the diltiazem was turned off. Immediately after, she converted. There were some minor nonspecific ST changes. She was in sinus bradycardia. PAST MEDICAL HISTORY: Essentially as described above. Her most previous atrial fibrillation episode was on 06/28/2019. She has history of hypertension. She has had multiple episodes of atrial fibrillation with rapid ventricular response. She also has hyperlipidemia. PAST SURGICAL HISTORY: She has had a hysterectomy and appendectomy. She had coronary stents x 2 in 2013. ALLERGIES: She is allergic to SULFA, TRIMETHOPRIM from Bactrim. HOME MEDICATIONS: Include: 1. P.r.n. Tylenol. 2. Calcium carbonate 500 [place] [address] CONSULTATION Name: VI STEWARD Araceli Room: [address]#: [id number] Admission: 08/01/19 Attend Phys: Kamille Schneider Discharge: Date of : 41 Report #: [id number] 3. Vitamin D 1000 units daily. 4. Omeprazole 20 mg daily. 5. Paxil 20 mg at bedtime. 6. MiraLax p.r.n. 7. Sotalol 40 mg b.i.d. 8. Tramadol 50 mg every 6 hours p.r.n. 9. Warfarin 5 mg on the weekend and 4 mg on Friday, Friday, Friday, and Friday. She was on atorvastatin in the past, but that has apparently been discontinued. FAMILY HISTORY: Unremarkable. SOCIAL HISTORY: She does not smoke, drink or use illegal drugs. REVIEW OF SYSTEMS: Essentially as per the history of present illness. Otherwise, her review of systems is negative for some 45 different complaints in 14-different system categories including central nervous system, general, respiratory, cardiovascular, endocrine, gastrointestinal, genitourinary, hematologic, lymphatic, allergic, immunologic, psychiatric, musculoskeletal, skin, eyes, ears, nose, mouth, and throat. Please see her review of system form for details and the negatives in review of systems. PHYSICAL EXAMINATION: GENERAL: She presented as a well-developed, well-nourished white female, in no acute distress. VITAL SIGNS: Pulse is 73 and regular, blood pressure is 106/57, respirations are 16 and regular, temperature is 98 degrees. HEENT: Her head is atraumatic. Eyes clear. NECK: Supple. There is no jugular venous distention or hepatojugular reflux. Thyroid is not enlarged. There is no adenopathy. SKIN: Warm and dry. Mucous membranes are moist. LUNGS: Clear to auscultation and percussion. HEART: Revealed normal first and second heart sound. There is soft S4. There is no S3. There are no murmurs, rubs, thrills, heaves or gallops. PMI is nondisplaced. ABDOMEN: Soft, flat and nontender. No palpable masses. No organomegaly. EXTREMITIES: Reveal no cyanosis, clubbing or edema. NEUROLOGIC: The patient mentated normally, talked normally, moved all extremities normally. LABORATORY DATA: Her chest x-ray demonstrated no acute process. IMPRESSION: 1. Paroxysmal atrial fibrillation with a rapid ventricular response. 2. [place] [address] CONSULTATION Name: VI STEWARD Room: [address] IN .[place]#: [id number] Admission: 08/01/19 Attend Phys: Kamille Schneider Discharge: Date of : 41 Report #: [id number] 3. Status post coronary artery stent. 4. Chronic anticoagulation with Coumadin. RECOMMENDATION: I would increase her sotalol to 80 mg in the morning and 40 mg at night. I continue the remainder of her medications as is. I would check her thyroid function to be sure she is not hyperthyroid. Thank you very much for asking me to see this patient. If there are any questions, please feel free to contact me. <ELECTRONICALLY SIGNED> By: Tal Jenkins MD, FACC 08/03/19 0806 1303 1442F. González Jenkins MD, FACC /nt
--- NOTE | 2019-08-03 15:05 | NUR ---
PT.KNOWN TO CM FROM PREVIOUS HOPSITAL ADMISSIONS. SHE LIVES WITH HER DAUGHTER,BRANT IN A MOBILE HOME. SHE SAID SHE WAS GETTING ALONG OK UNTIL HER AFIB FLARED UP AGAIN. NO USE OF DME. SHE [facility] SAID THEY WOULD BE GLAD TO TAKE HER BACK ON SERVICE IF NEEDED AT DISCHARGE. CALL [phone].
--- NOTE | 2019-08-03 16:15 | EKG ---
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: : 1945 Requested By: Montez Wiggins Order Number: [id number] Isaac MD: Valentin Lomeli Measurements Intervals [place] Rate: 47 P: 44 MO: 142 QRS: -7 QRSD: 94 T: 65 QT: 491 QTc: 434 Interpretive Statements Sinus bradycardia Borderline ST depression, anterolateral leads Compared to ECG 08/01/2019 15:20:27 ST (T wave) deviation now present Atrial fibrillation no longer present Early repolarization no longer present Electronically Signed On 08-03-2019 16:13:32 CDT by Valentin Lomeli [email or web address] <ELECTRONICALLY SIGNED> By: Valentin Lomeli MD, [facility] 08/03/19 1613 1034 1034 Valentin Lomeli MD, [facility] /EPI
--- NOTE | 2019-08-03 16:28 | EKG ---
[place] [address] ELECTROCARDIOGRAM REPORT Name: VI STEWARD Room: [address] ADM IN .R.#: [id number] Admission: 08/01/19 Attend Phys: Montez Wiggins Discharge: Date of : 41 Date of Service: 08/03/19 1211 Report #: [id number] THIS REPORT FOR: //name// [facility] Test Date: 2019-08-03 Test Time: 12:11:29 Pat Name: VI STEWARD Department: Room: [address] Gender: F Rn Acute Dialysis: MIMI : 1945 Requested By: Montez Wiggins Order Number: [id number] Isaac MD: Valentin Lomeli Measurements Intervals [place] Rate: 54 P: 49 MT: 187 QRS: -8 QRSD: 93 T: 24 QT: 509 QTc: 483 Interpretive Statements Sinus rhythm Borderline ST depression, lateral leads Compared to ECG 08/01/2019 15:20:27 ST (T wave) deviation now present Atrial fibrillation no longer present Early repolarization no longer present Electronically Signed On 08-03-2019 16:26:54 CDT by Valentin Lomeli [email or web address] <ELECTRONICALLY SIGNED> By: Valentin Lomeli MD, [facility] 08/03/19 1626 1211 1211 Valentin Lomeli MD, [facility] /EPI
[2019-08-03] MEDS ORDERED: LIPITOR40 MG PO (17:16)
[2019-08-03] MEDS ORDERED: SOTALOL80 MG PO (17:18)
[2019-08-03] MEDS ORDERED: COUMADIN 1MG TAB1 M1 PO (17:46)
--- NOTE | 2019-08-03 18:20 | NUR ---
PT. AOX4, SR ON TELE AND STABLE ON MONITOR, VSS, DENIES PAIN. HOURLY ROUNDING COMPLETED. CALL LIGHT AND PERSONAL BELONGINGS WITHIN REACH. DISCHARGE ORDERS RECEIVED. PIV DCED WITHOUT COMPLICATIONS. DISCHARGE SUMMARY EXPLAINED, EDUCATED PT ON MEDICATIONS, DIET AND ACTIVITY RESTRICTIONS. PT VERBALIZED UNDERSTANDING. PT. LEFT ROOM ON WC WITH NURSING STAFF, PICKED UP BY DAUGHTER BY CAR AT ER ENTRANCE. PT. LEFT WITH PERSONAL BELONGINGS.
== END 2019-08-03 23:18 | disposition home health service (06) | DRG 309 ==
LOC: M.ERS 15:17 → M.TBA-ER 16:26 → M.2W 16:26
PROVIDERS: Emergency Medicine Emergency Medical Services; Internal Medicine; ADMIT Internal Medicine
DX: I48.0 Paroxysmal atrial fibrillation (principal); D68.69 Other thrombophilia; I48.20 Chronic atrial fibrillation, unspecified; I10 Essential (primary) hypertension; E78.5 Hyperlipidemia, unspecified; I25.10 Atherosclerotic heart disease of native coronary artery without angina pectoris; Z79.01 Long term (current) use of anticoagulants; Z79.899 Other long term (current) drug therapy; Z90.710 Acquired absence of both cervix and uterus; Z90.49 Acquired absence of other specified parts of digestive tract; Z95.5 Presence of coronary angioplasty implant and graft; Z88.1 Allergy status to other antibiotic agents; Z88.8 Allergy status to other drugs, medicaments and biological substances

== ENCOUNTER 2019-08-23 18:57 | Inpatient (IN) | payer MEDICARE ==
[~2019-08-23] VITALS: Ht 167.6 cm; Wt 72.6 kg
[~2019-08-23 18:57] MED LIST changes: +LIPITOR40 MG PO; +SOTALOL80 MG PO
[2019-08-23 19:07] VITALS: BP 122/80
[2019-08-23 19:27] LABS: ABSOLUTE BASOPHILS 0.1 thou/uL (0.0-0.2); ABSOLUTE EOSINOPHILS 0.1 thou/uL (0.0-0.7); ABSOLUTE LYMPHOCYTES 2.7 thou/uL (0.8-5.3); ABSOLUTE MONOCYTES 0.8 thou/uL (0.0-1.2); ABSOLUTE NEUTROPHILS 4.3 thou/uL (1.6-8.1); BASOPHILS 1.3 %; EOSINOPHILS 1.7 %; HEMATOCRIT 40.8 % (37.0-47.0); HEMOGLOBIN 13.8 gm/dL (12.0-15.0); LYMPHOCYTES 33.2 %; MCH 29.5 pg (26.0-34.0); MCHC 33.8 g/dL (28.0-37.0); MCV 87.3 fL (80.0-100.0); MONOCYTES 10.3 %; MPV 8.6 fl. (7.2-11.1); NUCLEATED RBCS 0 /100WBC; PLATELET COUNT* 246 thou/uL (150-400); POLYS 53.5 %; RBC 4.67 mil/uL (4.20-5.00); RDW-CV 14.5 % (10.5-14.5); WBC 8.1 thou/uL (4.0-11.0)
[2019-08-23 19:37] LABS: CALCIUM 8.5 mg/dL (8.5-10.1); POTASSIUM 3.5 mmol/L (3.5-5.1)
[2019-08-23 19:39] LABS: APTT 37.3 Seconds (25.0-31.3); INR 2.3; PROTIME 23.3 Seconds (9.20-11.50)
[2019-08-23 19:51] LABS: ALBUMIN 3.5 g/dL (3.4-5.0); MAGNESIUM 2.1 mg/dL (1.8-2.4); TOTAL BILIRUBIN 0.2 mg/dL (<0.1-1.0); TOTAL PROTEIN 7.3 g/dL (6.4-8.2)
[2019-08-23 22:04] VITALS: BP 122/70
[2019-08-24] VITALS (8 sets, daily range): BP systolic 82–115; BP diastolic 46–69
--- NOTE | 2019-08-24 07:33 | NUR ---
CARTIZEM DRIP TITRATED TO 5ML/H, WITH HR STABLE. VSS. SEE MAR. SEE CHARTING.
--- NOTE | 2019-08-24 10:51 | EKG ---
[place] [address] ELECTROCARDIOGRAM REPORT Name: VI STEWARD Room: [address]R.#: [id number] Admission: 08/23/19 Attend Phys: Montez Wiggins Discharge: Date of : 41 Date of Service: 08/23/19 190 Report #: [id number] THIS REPORT FOR: //name// [facility] ED Test Date: 2019-08-23 Test Time: 19:01:55 Pat Name: VI STEWARD Department: Room: [facility] Gender: F Huc Ob: MR : 1945 Requested By: Jaydon Mckinnon Order Number: [id number] MD: Tommy Ibarra Measurements Intervals [place] Rate: 155 P: 0 [place]: 376 QRS: -13 QRSD: 88 T: 139 QT: 307 QTc: 493 Interpretive Statements atrial fibrillation Probable LVH with secondary repol abnrm Baseline wander in lead(s) V4 Compared to ECG 08/03/2019 12:11:29 Sinus rhythm no longer present Electronically Signed On 08-24-2019 10:50:48 CDT by Tommy Ibarra [email or web address] <ELECTRONICALLY SIGNED> By: Tommy Ibarra MD, [facility] 08/24/19 1050 00 00 Tommy Ibarra MD, [facility] /EPI
--- NOTE | 2019-08-24 12:48 | 2DMMODE ---
[place] [address] 2 D/M-MODE ECHOCARDIOGRAM Name: VI STEWARD Araceli Room: [address] [place]#: [id number] Admission: 08/23/19 Attend Phys: Montez Wiggins Discharge: Date of : 41 Date of Service: 08/24/19 1247 Report #: [id number] THIS REPORT FOR: cc: Tiago Hanson MD, Matthew W. MD Blick, David R. MD [facility] ~ APPROVED REPORT Study performed: 08/24/2019 09:38:26 EXAM: Comprehensive 2D, Doppler, and color-flow Echocardiogram Patient Location: In-Patient BSA: 1.80 HR: 54 bpm BP: 96/60 mmHg Other Information Study Quality: Good Indications Atrial Fibrillation 2D Dimensions IVSd: 11.09 (7-11mm) LVOT Diam: 18.80 (18-24mm) LVDd: 39.41 mm PWd: 11.73 (7-11mm) Ascending Ao: 30.43 (22-36mm) LVDs: 32.77 (25-40mm) Aortic Root: 25.26 mm Volumes Left Atrial Volume (Systole) LA ESV Index: 26.50 mL/m2 Aortic Valve AoV Peak Gilberto.: 1.23 m/s AO Peak Gr.: 6.10 mmHg LVOT Max P.03 mmHg AO Mean Gr.: 3.15 mmHg LVOT Mean P.92 mmHg LVOT Max V: 0.71 m/s AO V2 VTI: 18.28 cm LVOT Mean V: 0.44 m/s MERISSA (VTI): 1.69 cm2 LVOT V1 VTI: 11.11 cm Mitral Valve E/A Ratio: 3.06 [place] [address] 2 D/M-MODE ECHOCARDIOGRAM Name: VI STEWARD Room: [address] [place]#: [id number] Admission: 08/23/19 Attend Phys: Montez Wiggins Discharge: Date of : 41 Date of Service: 08/24/19 1247 Report #: [id number] MV Decel. Time: 161.61 ms MV E Max Gilberto.: 1.08 m/s MV PHT: 46.87 ms MVA (PHT): 4.69 cm2 TDI E/Lateral E': 9.00 E/Medial E': 12.00 Medial E' Gilberto.: 0.09 m/s Lateral E' Gilberto.: 0.12 m/s Pulmonary Valve PV Peak Gilberto.: 0.80 m/s PV Peak Gr.: 2.57 mmHg Tricuspid Valve RAP Estimate: 5.00 mmHg TR Peak Gr.: 20.76 mmHg RVSP: 25.76 mmHg PA Pressure: 25.76 mmHg Left Ventricle The left ventricle is normal size. There is normal LV segmental wall motion. There is normal left ventricular wall thickness. Left ventricular systolic function is normal. The left ventricular ejection fraction is within the normal range. LVEF is 55-60%. Right Ventricle The right ventricle is normal size. The right ventricular systolic function is normal. Atria The left atrium size is normal. The right atrium size is normal. Aortic Valve The aortic valve is normal in structure. No aortic regurgitation is present. There is no aortic valvular stenosis. Mitral Valve The mitral valve is normal in structure. There is no mitral valve regurgitation noted. No evidence of mitral valve stenosis. Tricuspid Valve The tricuspid valve is normal in structure. Trace tricuspid regurgitation. Pulmonic Valve Pulmonic valve is not well visualized.. There [place] [address] 2 D/M-MODE ECHOCARDIOGRAM Name: VI STEWARD Araceli Room: [address]#: [id number] Admission: 08/23/19 Attend Phys: Montez Wiggins Discharge: Date of : 41 Date of Service: 08/24/19 1247 Report #: [id number] regurgitation. Great Vessels The aortic root is normal in size. IVC is normal in size and collapses >50% with inspiration. Pericardium There is no pericardial effusion. <Conclusion> Left ventricular systolic function is normal. The left ventricular ejection fraction is within the normal range. <ELECTRONICALLY SIGNED> By: Tommy Ibarra MD, [facility] 08/24/19 1247 124 124 Tommy Ibarra MD, FAC /INF
--- NOTE | 2019-08-24 15:45 | NUR ---
Pt is A&O. Resides at home with her dtr. Independent. No DME. Pt is current with [facility] and would like to resume at dc with a nurse only. No hx of SNF. Goal is home, anticipate dc tomorrow. [facility] p:[phone] f:[phone]
--- NOTE | 2019-08-24 16:02 | NUR ---
assumed pt care report received from nurse pt is aox4. on ra. tracing afib on environmental monitoring specialist. heart rate varies from 75 to 120. cardizem drip transfusing through iv line. no complaint. pt's blood pressure is soft at lunch time. see chart. cardizem drip ws stopped per nurse practitioner's order. cardizem po to be given. pt has good appetite. up ad daniele. echo performed at bedside. will continue to monitor pt
--- NOTE | 2019-08-24 18:50 | NUR ---
pt heart rate increased in the 115s and 140s. still tracing afib on quality assurance monitor body. bp taken. 82/53. cardiology was paged to commnicate concern with increased heart rate. awaiting call back
--- NOTE | 2019-08-24 19:04 | NUR ---
new orders received from dr hammond for this patient. orders were written in chart and insert on Amprius. see chart. will proceed as ordered
--- NOTE | 2019-08-24 19:20 | NUR ---
BP RECHECKED IN LEFT ARM. 101/56. DIGOXIN GIVEN ORDERED. K BAG HANGED
[2019-08-25] VITALS (7 sets, daily range): BP systolic 103–138; BP diastolic 53–89
[2019-08-25 08:46] LABS: ABSOLUTE EOSINOPHILS 0.1 thou/uL (0.0-0.7); ABSOLUTE LYMPHOCYTES 1.8 thou/uL (0.8-5.3); ABSOLUTE MONOCYTES 0.6 thou/uL (0.0-1.2); ABSOLUTE NEUTROPHILS 2.9 thou/uL (1.6-8.1); BASOPHILS 0.8 %; EOSINOPHILS 1.5 %; HEMATOCRIT 40.4 % (37.0-47.0); HEMOGLOBIN 13.4 gm/dL (12.0-15.0); MCHC 33.1 g/dL (28.0-37.0); MCV 87.5 fL (80.0-100.0); MONOCYTES 10.5 %; MPV 8.3 fl. (7.2-11.1); NUCLEATED RBCS 0 /100WBC; PLATELET COUNT* 249 thou/uL (150-400); POLYS 54.2 %; RBC 4.62 mil/uL (4.20-5.00); RDW-CV 14.6 % (10.5-14.5); WBC 5.4 thou/uL (4.0-11.0)
[2019-08-25 08:58] LABS: ALBUMIN 3.2 g/dL (3.4-5.0); CALCIUM 8.4 mg/dL (8.5-10.1); CREATININE 0.9 mg/dL (0.6-1.3); POTASSIUM 4.1 mmol/L (3.5-5.1); TOTAL BILIRUBIN 0.4 mg/dL (<0.1-1.0); TOTAL PROTEIN 6.9 g/dL (6.4-8.2)
--- NOTE | 2019-08-25 08:59 | NUR ---
Per Cardiology, Pt to have pacer on John
--- NOTE | 2019-08-25 09:26 | NUR ---
PT IS AOX4 ON RA. VITAL SIGNS TAKEN. O2 SATURATION 96% ON RA. BP 110/54. TRACING SR ON SPECIALIST PHYSICIANS. PT HEART RYTHM CHANGED QUICKLY TO SINUS CAYLA . THEN PT HAD A PAUSE WHICH WAS FELT BY PATIENT. CARDIOLOGY NOTIFIED ON PAUSE AND STRIP WAS PRINTED AND PLACED IN CHART. PT IS ASYMPTOMATIC. NO NEEW ORDER RECEIVED.PLAN REMAINS TO PLACE PACEMAKER THE NEXT DAY. WILL CONTINUE TO MONITOR PT
[2019-08-25 12:16] LABS: INR 2.3
--- NOTE | 2019-08-25 13:11 | NUR ---
PT HEART RYTHM CONVERTED BACK TO AFIB AT 12:50PM. HEART RATE IN THE 130S. DESIRAE NURSE PRACTITINER CONTACTED. MESSAGE LEFT.
--- NOTE | 2019-08-25 13:46 | NUR ---
Cardiac Rehab Education on Permanent Pacemaker completed with receptive patient and daughter using PPM handout. Education included Atrial Fib, post proceedure care, activity restrictions and wound care. Questions answered to patient and daughter's satisfaction.
--- NOTE | 2019-08-25 14:14 | NUR ---
CONSENT FOR PACEMAKER PLACEMENT ORDERED. PT LEFT UNIT AT 1412 TO GO TO IR FOR PACEMAKER PLACEMENT ACCOMPANIED BY IR NURSES.
--- NOTE | 2019-08-25 16:46 | NUR ---
AT 1630 PT RETURNED FROM THE PROCEDURE. HERT MONITOR ATTACHED. SLING IS IN PLACE IN LEFT ARM. VSS. TRACING A PACED ON PHP MAGENTO DEVELOPER. HEART RYTHM 70. PT INSTRUCTED NOT TO LIFT LEFT ARM ABOVE HEAD. CALL LIGHT AT REACH. PT READY TO EAT DINER. DENIES PAIN. INCISION SITE IS DRY AND INTACT. WILL CONTINUE TO MONITOR
[2019-08-26] VITALS: BP 146/64
[2019-08-26 04:52] LABS: INR 1.5; PROTIME 14.7 Seconds (9.20-11.50)
[2019-08-26 08:00] VITALS: BP 138/76
--- NOTE | 2019-08-26 10:26 | EKG ---
[place] [address] ELECTROCARDIOGRAM REPORT Name: VI STEWARD Room: [address] ADM IN [facility].#: [id number] Admission: 08/25/19 Attend Phys: Montez Wiggins Discharge: Date of : 41 Date of Service: 08/26/19 0843 Report #: [id number] THIS REPORT FOR: //name// [facility] Test Date: 2019-08-26 Test Time: 08:43:13 Pat Name: VI STEWARD Department: Room: [address] Gender: F Noodle Maker: : 1945 Requested By: Tommy Ibarra Order Number: [id number] Isaac MD: Tommy Ibarra Measurements Intervals [place] Rate: 70 P: 10 [place]: 216 QRS: -14 QRSD: 86 T: QT: 384 QTc: 415 Interpretive Statements atrial paced rhythm Atrial premature complexes Borderline prolonged [place] interval Borderline repolarization abnormality Compared to ECG 08/23/2019 19:01:55 Atrial fibrillation no longer present Electronically Signed On 08-26-2019 10:25:59 CDT by Tommy Ibarra [email or web address] <ELECTRONICALLY SIGNED> By: Tommy Ibarra MD, [facility] 08/26/19 1025 0843 0843 Tommy Ibarra MD, [facility] /EPI
[2019-08-26 12:38] VITALS: BP 134/68
--- NOTE | 2019-08-26 13:11 | NUR ---
Per clau Jones placed yesterday, anticipate dc to home tomorrow.
--- NOTE | 2019-08-26 14:01 | CARD ---
[address] [address] CARDIAC CATH REPORT Name: BINVI Araceli Room: [address] IN .R.#: [id number] Admission: 08/25/19 Attend Phys: Kamille Schneider Discharge: Date of : 41 Report #: [id number] THIS REPORT FOR: //name// cc: Tiago Hanson MD, Matthew W. MD ~ APPROVED REPORT Study performed: 08/25/2019 13:49:12 Patient Status: In-Patient Room #: Event Personnel: Tommy Ibarra Glaze Grinder, Dani Covington RN RN, Emanuel Joseph RTR Scrub, Reshma Johnson RTR Monitor Exam: Cardioversion followed by Insertion of Dual Chamber Permanent Pacemaker Indications: Sick Sinus Syndrome/Tachy Faustino Syndrome The patient is a 73 year-old female with a history of Atrial Fibrillation. Patient Info Anticoagulant Therapy: warfarin Conscious Sedation Start time: 15:01 End Time: 15:56 Fentanyl 25 mcg Versed 1 mg Patient required Anesthesia for the cardioversion before pacemaker insertion. Propofol was given at 14:35 and case ended at 14:38. Two seperate time outs were performed. The cardioversion was done at 200 J synchronized. Implanted Devices: dual chamber mri compatible biotronic pacemaker and leads Explanted Devices: none Procedure The patient underwent informed consent. We discussed the details of the procedure including the risks, which include, but not limited to bleeding, infection, vascular damage, cardiac perforation, and pneumothorax. She understood these risks and was willing to proceed. As such, she was brought to the EP/Cardiac Catheterization laboratory in a fasting and sedated state and prepped and draped in a sterile fashion, received IV antibiotics prior to initiation of the procedure and a venogram was performed showing patency of [place] [address] CARDIAC CATH REPORT Name: VI STEWARD Room: [address] IN [facility].#: [id number] Admission: 08/25/19 Attend Phys: Kamille Schneider Discharge: Date of : 41 Report #: [id number] The patient underwent MAC anesthesia, with no anesthesia related complications. The patient underwent conscious sedation, with no related complications. The patient was brought to the EP/Cardiac Catheterization laboratory and the left chest and shoulder were prepped and draped in a sterile manner. During this case, Fluoroscopy and visipaque 15cc were used for imaging. The left subclavian region was infiltrated with 2% Lidocaine with Epinephrine subcutaneous anesthesia. A transverse incision was made in the left upper chest cavity. The subcutaneous pocket was formed via blunt dissection. Percutaneous venous access was achieved and an introducer sheath was inserted into the left Subclavian vein. Sheaths were positions using the modified Seldinger technique Through the introducer sheaths the atrial and ventricular lead wires were positioned in the right atrial appendage and right ventricular apex respectively. Utilizing fluoroscopic guidance, the atrial and ventricular lead wires were advanced over the wires and positioned in the right atria and right ventricle respectively. Capturing and sensing thresholds were verified. Since the patient was on warfarin, the pocket was irrigated with d-stat flowable at the end of the procedure. Electrode Parameters P Wave: 2.0 mv R Wave: 10 mv Atrial Threshold: 0.6 v @ 0.4 ms Ventricular Threshold: 0.7 v @ 0.4 ms Atrial Resistance: 495 ohm Ventricular Resistance: 510 ohm Dual Chamber The atrial and ventricular leads were then secured using 0 silk sutures. The subcutaneous pocket was irrigated with ancef antibiotic solution.The atrial and ventricular leads were attached to the appropriate receptacles on the pulse generator and set screws firmly tightened to insure adequate contact and stability. The lead and pulse generator were placed into the subcutaneous pocket. Sharp and sponge counts were confirmed to be correct. At this time the pocket was closed subcutaneously with a 0 Vicryl and 2.0 Vicryl and the skin was closed with a 4.0 Vicryl. The operative site was dressed in sterile fashion with dermabond and the patient was transferred to [place] [address] CARDIAC CATH REPORT Name: VI STEWARD Room: [address] IN ..#: [id number] Admission: 08/25/19 Attend Phys: Kamille Schneider Discharge: Date of : 41 Report #: [id number] Complications The patient tolerated the procedure well and there were no complications associated with the procedure. Findings Specimens Removed: No Estimated Blood Loss: 5ml Conclusion 1. successful cardioversion of atrial fibrillation to nsr 2. successful placement of a dual chamber pacemaker and leads <ELECTRONICALLY SIGNED> By: Tommy Ibarra MD, [facility] 08/26/19 1400 1400 1400Davikamille Ibarra MD, [facility] /INF
[2019-08-26 17:11] VITALS: BP 151/84
--- NOTE | 2019-08-26 18:48 | NUR ---
MARK RESTING IN BED. UP AD SAMANTHA. LEFT ARMM LIFTING RESTRICTION R/T PACEMAKER PLACEMENT ON 08/25/19. HOURLY ROUJDING COMPLETD FOR PATIENT SAFETY
[2019-08-26 19:49] VITALS: BP 125/71
[2019-08-27] VITALS: BP 115/69
[2019-08-27 04:00] VITALS: BP 150/70
--- NOTE | 2019-08-27 04:46 | NUR ---
ASSUMED PT CARE AT 1910. NURSING ASSESSMENT COMPLETED AT START OF SHIFT. A PACED ON AUTOMATIC DIE CUTTING MACHINE OPERATOR. HOURLY ROUNDING COMPLETED. CALL LIGHT WITHIN REACH. PT C/O BACK PAIN THIS SHIFT, ACTEAMINOPHEN ADMINISTERED. SEE EMAR FOR DOCUMENTATION.
[2019-08-27 06:10] LABS: ABSOLUTE EOSINOPHILS 0.1 thou/uL (0.0-0.7); ABSOLUTE LYMPHOCYTES 1.6 thou/uL (0.8-5.3); ABSOLUTE MONOCYTES 0.8 thou/uL (0.0-1.2); ABSOLUTE NEUTROPHILS 3.7 thou/uL (1.6-8.1); BASOPHILS 0.7 %; EOSINOPHILS 1.6 %; HEMATOCRIT 36.1 % (37.0-47.0); HEMOGLOBIN 12.4 gm/dL (12.0-15.0); MCH 29.8 pg (26.0-34.0); MCHC 34.4 g/dL (28.0-37.0); MCV 86.8 fL (80.0-100.0); MONOCYTES 12.6 %; MPV 8.8 fl. (7.2-11.1); NUCLEATED RBCS 0 /100WBC; PLATELET COUNT* 193 thou/uL (150-400); POLYS 60.1 %; RBC 4.16 mil/uL (4.20-5.00); RDW-CV 14.2 % (10.5-14.5); WBC 6.2 thou/uL (4.0-11.0)
[2019-08-27 06:15] LABS: INR 1.2; PROTIME 12.3 Seconds (9.20-11.50)
[2019-08-27 06:36] LABS: CALCIUM 8.6 mg/dL (8.5-10.1); CREATININE 0.8 mg/dL (0.6-1.3); POTASSIUM 3.8 mmol/L (3.5-5.1)
[2019-08-27 08:00] VITALS: BP 132/77
[2019-08-27 09:50] VITALS: BP 132/77
--- NOTE | 2019-08-27 10:31 | EKG ---
[place] [address] ELECTROCARDIOGRAM REPORT Name: VI STEWARD Room: [address] ADM IN [facility]#: [id number] Admission: 08/25/19 Attend Phys: Montez Wiggins Discharge: Date of : 41 Date of Service: 08/27/19914 Report #: [id number] THIS REPORT FOR: //name// [facility] Test Date: 2019-08-27 Test Time: 09:15:08 Pat Name: VI STEWARD Department: Room: [address] Gender: F Engineering Technical Writer: : 1945 Requested By: Debra Silva Order Number: [id number] Reading MD: Tommy Ibarra Measurements Intervals [place] Rate: 74 P: 49 [place]: 234 QRS: -6 QRSD: 93 T: QT: 412 QTc: 457 Interpretive Statements atrial paced rhythm Atrial premature complex Prolonged [place] interval Nonspecific repol abnormality, diffuse leads Compared to ECG 08/26/2019 08:43:13 no change Electronically Signed On 08-27-2019 10:30:25 CDT by Tommy Ibarra [email or web address] <ELECTRONICALLY SIGNED> By: Tommy Ibarra MD, [facility] 08/27/19 1030 4 Tommy Ibarra MD, [facility] /EPI
--- NOTE | 2019-08-27 10:34 | NUR ---
ORDER RECEIVED TO DISCHARGE MARK HOME TO SELF CARE. MED REC, MMEDICATION EDUCATION, STRROKE EDUCATION, AND NEED FOR FOLLOW UP APPOINTMENTS WITH CARDIOLOGY AND PRIMARY CARE PROVIDER COVCERED WITH MARK AND STATED UNDERSTOOD. MARK WAS ALSO EDUCATED REGARDING THE NEEDTO HAVE NO HEAVY LIFTING WITH LEFT ARM FOR 7 DAYS AND NO EXTENDING HER LEFT ARM OVER HER HEAD FOR 7 DAYS. IV AND TELEMETRY PACK REOMVED. JAYSON JONES COMPLETD FOR MARK SAFETY. AWAITING ARRIVAL OF HER DAUGHTER FOR TRANSPORTATION OT HOME. EXPECTED DC TIME OF 11:00.
== END 2019-08-27 11:30 | disposition home or self-care (01) | DRG 242 ==
LOC: M.ERS 18:57 → M.2W 20:10 → M.TBA-ER 20:10 → M.2W 22:12
PROVIDERS: Family Medicine; Internal Medicine; Nurse Practitioner; Registered Nurse; ADMIT Internal Medicine; ATTEND Internal Medicine
PROC: 02H63JZ Insertion of Pacemaker Lead into Right Atrium, Percutaneous Approach (ICD-10-PCS; principal; 2019-08-25)
PROC: 0JH606Z Insertion of Pacemaker, Dual Chamber into Chest Subcutaneous Tissue and Fascia, Open Approach (ICD-10-PCS; principal; 2019-08-25)
PROC: 02HK3JZ Insertion of Pacemaker Lead into Right Ventricle, Percutaneous Approach (ICD-10-PCS; principal; 2019-08-25)
DX: I49.5 Sick sinus syndrome (principal); I50.33 Acute on chronic diastolic (congestive) heart failure; D68.69 Other thrombophilia; I11.0 Hypertensive heart disease with heart failure; I48.0 Paroxysmal atrial fibrillation; I25.10 Atherosclerotic heart disease of native coronary artery without angina pectoris; E78.2 Mixed hyperlipidemia; Z90.710 Acquired absence of both cervix and uterus; Z95.5 Presence of coronary angioplasty implant and graft; Z88.2 Allergy status to sulfonamides; Z88.8 Allergy status to other drugs, medicaments and biological substances; Z91.14 Patient's other noncompliance with medication regimen; Z79.899 Other long term (current) drug therapy

== ENCOUNTER 2019-09-01 15:24 | Inpatient (IN) | payer MEDICARE ==
[~2019-09-01] VITALS: Ht 167.6 cm; Wt 71.2 kg
[2019-09-01 15:38] VITALS: BP 127/89
[2019-09-01 16:04] LABS: ABSOLUTE BASOPHILS 0.1 thou/uL (0.0-0.2); ABSOLUTE EOSINOPHILS 0.1 thou/uL (0.0-0.7); ABSOLUTE LYMPHOCYTES 2.3 thou/uL (0.8-5.3); ABSOLUTE NEUTROPHILS 4.1 thou/uL (1.6-8.1); BASOPHILS 1.4 %; EOSINOPHILS 1.8 %; HEMATOCRIT 38.6 % (37.0-47.0); LYMPHOCYTES 30.3 %; MCH 29.2 pg (26.0-34.0); MCHC 33.6 g/dL (28.0-37.0); MCV 86.8 fL (80.0-100.0); MONOCYTES 13.1 %; MPV 8.3 fl. (7.2-11.1); NUCLEATED RBCS 0 /100WBC; PLATELET COUNT* 251 thou/uL (150-400); POLYS 53.4 %; RBC 4.44 mil/uL (4.20-5.00); RDW-CV 14.7 % (10.5-14.5); WBC 7.6 thou/uL (4.0-11.0)
[2019-09-01 16:08] LABS: ANION GAP 8 mmol/L (7-16); BUN 16 mg/dL (7-18); CALCIUM 8.9 mg/dL (8.5-10.1); CHLORIDE 108 mmol/L (98-107); CO2 25 mmol/L (21-32); CREATININE 0.9 mg/dL (0.6-1.3); GLUCOSE 96 mg/dL (70-99); POTASSIUM 3.4 mmol/L (3.5-5.1); SODIUM 141 mmol/L (136-145)
[2019-09-01 16:09] LABS: APTT 31.7 Seconds (25.0-31.3); INR 1.9; PROTIME 19.1 Seconds (9.20-11.50)
[2019-09-01 16:22] LABS: ALBUMIN 3.3 g/dL (3.4-5.0); ALKALINE PHOSPHATASE 90 U/L (46-116); CK-MB MASS < 0.5 ng/mL (<0.5-3.6); LIPASE 138 U/L (73-393); NT-PRO BRAIN NAT PEPTIDE 1474 pg/mL (<300); SGOT 21 U/L (15-37); SGPT 21 U/L (30-65); TOTAL BILIRUBIN 0.3 mg/dL (<0.1-1.0)
[2019-09-01 20:51] VITALS: BP 134/56
[2019-09-01 22:45] VITALS: BP 134/56
[2019-09-01 23:00] VITALS: BP 146/98; BP 157/97
[2019-09-02 02:47] VITALS: BP 101/65
[2019-09-02 04:08] LABS: ABSOLUTE BASOPHILS 0.1 thou/uL (0.0-0.2); ABSOLUTE EOSINOPHILS 0.1 thou/uL (0.0-0.7); ABSOLUTE LYMPHOCYTES 2.3 thou/uL (0.8-5.3); ABSOLUTE MONOCYTES 0.9 thou/uL (0.0-1.2); ABSOLUTE NEUTROPHILS 3.8 thou/uL (1.6-8.1); BASOPHILS 0.7 %; EOSINOPHILS 1.7 %; HEMATOCRIT 35.9 % (37.0-47.0); HEMOGLOBIN 12.2 gm/dL (12.0-15.0); LYMPHOCYTES 32.4 %; MCH 29.5 pg (26.0-34.0); MCV 86.9 fL (80.0-100.0); MONOCYTES 12.2 %; MPV 8.3 fl. (7.2-11.1); NUCLEATED RBCS 0 /100WBC; PLATELET COUNT* 221 thou/uL (150-400); RBC 4.13 mil/uL (4.20-5.00); RDW-CV 14.7 % (10.5-14.5); WBC 7.2 thou/uL (4.0-11.0)
[2019-09-02 04:15] LABS: CALCIUM 8.4 mg/dL (8.5-10.1); POTASSIUM 3.2 mmol/L (3.5-5.1)
[2019-09-02 05:03] VITALS: BP 104/55
--- NOTE | 2019-09-02 06:51 | NUR ---
PATIENT REMAINS ON CARDIZEM GTT WITH IMPROVEMENT IN HEART RATE SINCE ADMISSION, ALTHOUGH PT REMAINS IN PACED RHYTHM WITH UNDERLYING AFIB. HR 80'S AT THIS TIME. PATIENT DENIES PAIN AND DISCOMFORT.
[2019-09-02 07:57] VITALS: BP 101/70
--- NOTE | 2019-09-02 08:36 | NUR ---
ASSUMED PT CARE 0730. PT A/O X'S 4. NO C/O PAIN. PT DENIES CHEST PAIN AND PALIPATIONS. 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 VSS. PT ASSISTED TO AMBULATE TO BATHROOM. PT PLACED ON HEART HEALTHY DIET, CLEARED BY CARDIOLOGY TO EAT. POTASSIUM 3.2. DR WILKINSON NOTIFIED AND PT PLACED ON ELECTROLYTE PROTOCOL. WILL CONTINUE PLAN OF CARE.
--- NOTE | 2019-09-02 09:02 | EKG ---
[place] [address] ELECTROCARDIOGRAM REPORT Name: VI STEWARD Room: [address] AD[address] IN [facility].#: [id number] Admission: 09/01/19 Attend Phys: Parker Barrera, Discharge: Date of : 41 Date of Service: 09/01/19 1535 Report #: [id number] THIS REPORT FOR: //name// [facility] ED Test Date: 2019-09-01 Test Time: 15:35:29 Pat Name: VI STEWARD Department: Room: [facility] Gender: F Status Controller: CANDACE : 1945 Requested By: Jaydon Mckinnon Order Number: [id number] MD: Brady Bowen Measurements Intervals [place] Rate: 135 P: [place]: QRS: -17 QRSD: 84 T: 178 QT: 291 QTc: 437 Interpretive Statements Atrial fibrillation Ventricular pacing No further rhythm analysis attempted due to paced rhythm Borderline left axis deviation Repolarization abnormality, prob rate related Compared to ECG 08/27/2019 09:15:08 Atrial-paced complex(es) or rhythm no longer present Atrial premature complex(es) no longer present First degree AV block no longer present Electronically Signed On 09-02-2019 9:01:37 CDT by Brady Bowen [email or web address] <ELECTRONICALLY SIGNED> By: Brady Bowen MD, [facility] 09/02/19 0901 1535 1535 Brady Bowen MD, [facility] /EPI
[2019-09-02 12:10] VITALS: BP 113/65
--- NOTE | 2019-09-02 12:53 | NUR ---
Pt is A&O. Known to this CM from previous hospital stay last week, Pt dc on 08/25 with [facility]. Independent. No hx of SNF. Per Pt, plan to f/u with cardiology at [facility] for an ablation. Goal is home at dc, Pt states that she does not want HH at dc. Plan dc tomorrow.
--- NOTE | 2019-09-02 14:15 | EKG ---
[place] [address] ELECTROCARDIOGRAM REPORT Name: VI STEWARD Room: [address] ADM IN .R.#: [id number] Admission: 09/01/19 Attend Phys: Parker Barrera, Discharge: Date of : 41 Date of Service: 09/01/192002 Report #: [id number] THIS REPORT FOR: //name// [facility] ED Test Date: 2019-09-01 Test Time: 20:03:51 Pat Name: VI STEWARD Department: Room: [address] Gender: F Applications Development Consultant: CANDACE : 1945 Requested By: Jaydon Mckinnon Order Number: [id number] Isaac MD: Valentin Lomeli Measurements Intervals [place] Rate: 130 P: 0 [place]: QRS: -2 QRSD: 85 T: 208 QT: 306 QTc: 450 Interpretive Statements Paced rhythm alternates with atrial fibrillation with a tachycardic response No further analysis attempted due to paced rhythm Compared to ECG 09/01/2019 15:35:29 Atrial fibrillation persists Early repolarization no longer present Electronically Signed On 09-02-2019 14:14:57 CDT by Valentin Lomeli [email or web address] <ELECTRONICALLY SIGNED> By: Valentin Lomeli MD, FACC 09/02/19 1414 02 02 Valentin Lomeli MD, FAC /EPI
[2019-09-02 17:42] VITALS: BP 94/70
--- NOTE | 2019-09-02 18:16 | NUR ---
THIS AFTERNOON HEART RATE 127. CARDIOLOGY NOTIFIED. SOTALOL DOSAGE INCREASED. PT STAND BY ASSIST TO BATHROOM WITH NO ASSIST. JUST OBSERVATION PER FALL PROTOCOL. POTASSIUM REPLACED PER PROTOCOL.
--- NOTE | 2019-09-02 19:27 | NUR ---
HEART RATE 120'S- 130'S. CARDIOLOGY PAGED. AWAITING CALL-BACK
[2019-09-02 20:35] VITALS: BP 113/78
[2019-09-03] VITALS: BP 133/94
[2019-09-03 04:00] VITALS: BP 132/78
[2019-09-03 04:54] LABS: ABSOLUTE BASOPHILS 0.1 thou/uL (0.0-0.2); ABSOLUTE EOSINOPHILS 0.1 thou/uL (0.0-0.7); ABSOLUTE MONOCYTES 0.9 thou/uL (0.0-1.2); ABSOLUTE NEUTROPHILS 4.4 thou/uL (1.6-8.1); BASOPHILS 0.7 %; EOSINOPHILS 1.8 %; HEMATOCRIT 37.7 % (37.0-47.0); HEMOGLOBIN 12.8 gm/dL (12.0-15.0); MCH 29.6 pg (26.0-34.0); MCHC 33.8 g/dL (28.0-37.0); MCV 87.6 fL (80.0-100.0); MONOCYTES 11.8 %; MPV 8.4 fl. (7.2-11.1); NUCLEATED RBCS 0 /100WBC; PLATELET COUNT* 221 thou/uL (150-400); POLYS 58.7 %; RBC 4.31 mil/uL (4.20-5.00); RDW-CV 14.5 % (10.5-14.5); WBC 7.5 thou/uL (4.0-11.0)
[2019-09-03 05:05] LABS: PROTIME 20.1 Seconds (9.20-11.50)
[2019-09-03 05:18] LABS: CALCIUM 8.8 mg/dL (8.5-10.1); CREATININE 0.8 mg/dL (0.6-1.3); POTASSIUM 4.3 mmol/L (3.5-5.1)
--- NOTE | 2019-09-03 06:35 | NUR ---
NO ACUTE CHANGES THROUGHOUT SHIFT. HEART RATE CONTINUES TO BE BETWEEN 110s-130s. CARDIOLOGY CONTACTED, ORDERS RECEIVED AND ADMINISTERED. SEE CHARTING FOR MORE DETAILS.
--- NOTE | 2019-09-03 07:15 | NUR ---
CHANGE OF SHIFT BESIDE REPORT GIVEN PATIENT SEEN AT BESIDE, IN BED ASLEEP ASSUMED PATIENT CARE
[2019-09-03 08:00] VITALS: BP 122/79
[2019-09-03 09:52] VITALS: BP 122/79
[2019-09-03] MEDS ORDERED: SORINE 80 MG TA80 M1 PO (13:36)
[2019-09-03] MEDS ORDERED: LANOXIN125 MCG PO (13:36)
--- NOTE | 2019-09-03 14:23 | NUR ---
Pt discharging home today, continues to decline HH.
--- NOTE | 2019-09-03 15:45 | NUR ---
DISCHARGE TO HOME DISCHARGE INSTRUCTIONS GIVEN, ACKNOWLEDGED, SIGNED COPIES GIVEN IV AND HEART MONITOR REMOVED PERSONAL BELONGIGNS REMOVED PATIENT ASSISTED OUT VIA WC TO WAITING CAR
== END 2019-09-03 15:45 | disposition home or self-care (01) | DRG 308 ==
LOC: M.ERS 15:24 → M.2W 16:33 → M.TBA-ER 16:33 → M.2W 23:18
PROVIDERS: Family Medicine; ADMIT Internal Medicine; ATTEND Internal Medicine
DX: I48.91 Unspecified atrial fibrillation (principal); I50.33 Acute on chronic diastolic (congestive) heart failure; D68.59 Other primary thrombophilia; I49.5 Sick sinus syndrome; E87.6 Hypokalemia; I25.10 Atherosclerotic heart disease of native coronary artery without angina pectoris; E78.5 Hyperlipidemia, unspecified; I11.0 Hypertensive heart disease with heart failure; Z95.0 Presence of cardiac pacemaker; Z88.2 Allergy status to sulfonamides; Z88.8 Allergy status to other drugs, medicaments and biological substances; Z90.710 Acquired absence of both cervix and uterus; Z79.01 Long term (current) use of anticoagulants

== ENCOUNTER 2020-05-03 10:12 | Inpatient (IN) | payer OTHER ==
[~2020-05-03] VITALS: Ht 167.6 cm; Wt 72.8 kg
[~2020-05-03 10:12] MED LIST changes: +LANOXIN125 MCG PO; +PRADAXA150 MG PO; +SOTALOL 120 MG120 MG PO
[2020-05-03 10:20] VITALS: BP 141/85
[2020-05-03] MEDS ORDERED: LISINOPRIL5 MG PO (10:27)
[2020-05-03] MEDS ORDERED: PRADAXA150 MG PO (10:28)
[2020-05-03] MEDS ORDERED: CALCIUM + VITA1 EACH PO (10:28)
[2020-05-03] MEDS ORDERED: ULTRAM 50MG TAB50 MG PO (10:29)
[2020-05-03] MEDS ORDERED: AZELASTINE205.5 MCG/ NARES (10:30)
[2020-05-03 10:33] LABS: ABSOLUTE BASOPHILS 0.1 thou/uL (0.0-0.2); ABSOLUTE EOSINOPHILS 0.1 thou/uL (0.0-0.7); ABSOLUTE LYMPHOCYTES 1.6 thou/uL (0.8-5.3); ABSOLUTE MONOCYTES 0.7 thou/uL (0.0-1.2); ABSOLUTE NEUTROPHILS 3.9 thou/uL (1.6-8.1); BASOPHILS 0.9 %; EOSINOPHILS 1.4 %; HEMATOCRIT 39.8 % (37.0-47.0); LYMPHOCYTES 25.7 %; MCH 27.5 pg (26.0-34.0); MCHC 32.6 g/dL (28.0-37.0); MCV 84.3 fL (80.0-100.0); MONOCYTES 10.3 %; MPV 7.7 fl. (7.2-11.1); NUCLEATED RBCS 0 /100WBC; PLATELET COUNT* 277 thou/uL (150-400); POLYS 61.7 %; RBC 4.72 mil/uL (4.20-5.00); RDW-CV 15.7 % (10.5-14.5); WBC 6.4 thou/uL (4.0-11.0)
[2020-05-03 10:39] LABS: CALCIUM 9.3 mg/dL (8.5-10.1); CREATININE 0.8 mg/dL (0.6-1.3); POTASSIUM 3.7 mmol/L (3.5-5.1)
[2020-05-03 10:49] LABS: ALBUMIN 3.6 g/dL (3.4-5.0); MAGNESIUM 2.2 mg/dL (1.8-2.4); TOTAL BILIRUBIN 0.4 mg/dL (<0.1-1.0); TOTAL PROTEIN 7.5 g/dL (6.4-8.2)
--- NOTE | 2020-05-03 15:35 | EKG ---
[place] [address] ELECTROCARDIOGRAM REPORT Name: BINVI Room: [place] [address] ADM IN [facility].#: [id number] Admission: 05/03/20 Attend Phys: Brady Bowen, Discharge: Date of : 41 Date of Service: 05/03/20 1017 Report #: [id number] THIS REPORT FOR: //name// [facility] ED Test Date: 2020-05-03 Test Time: 10:17:35 Pat Name: VI STEWARD Department: Room: [facility] Gender: F Sofa Back Upholsterer: LENNY : 1945 Requested By: Galdino Fox Order Number: [id number] MD: Valentin Lomeli Measurements Intervals [place] Rate: 84 P: MO: 183 QRS: -4 QRSD: 83 T: 73 QT: 350 QTc: 414 Interpretive Statements Atrial-paced rhythm Minimal ST depression, lateral leads Compared to ECG 09/01/2019 20:03:51 ST (T wave) deviation now present Atrial fibrillation no longer present Electronically Signed On 05-03-2020 15:34:57 PRINTED CIRCUIT BOARDS LAMINATOR by Valentin Lomeli [email or web address] <ELECTRONICALLY SIGNED> By: Valentin Lomeli MD, [facility] 05/03/20 1534 1017 1017 Valentin Lomeli MD, [facility] /EPI
[2020-05-03 16:37] VITALS: BP 161/87
[2020-05-03 17:02] VITALS: BP 128/65
[2020-05-03 20:19] VITALS: BP 123/66
[2020-05-04 04:19] VITALS: BP 125/59
[2020-05-04 08:10] VITALS: BP 123/66
--- NOTE | 2020-05-04 09:46 | EKG ---
[place] [address] ELECTROCARDIOGRAM REPORT Name: VI STEWARD Room: [address] ADM IN .R.#: [id number] Admission: 05/03/20 Attend Phys: Brady Bowen, Discharge: Date of : 41 Date of Service: 05/04/20 0757 Report #: [id number] THIS REPORT FOR: //name// [facility] Test Date: 2020-05-04 Test Time: 07:57:53 Pat Name: VI STEWARD Department: Room: [facility] Gender: F Electronic News Gathering Editor: : 1945 Requested By: Debra Silva Order Number: [id number] Reading MD: Brady Bowen Measurements Intervals [place] Rate: 64 P: MO: 183 QRS: -7 QRSD: 86 T: 58 QT: 465 QTc: 480 Interpretive Statements Atrial-paced complexes Minimal ST depression, anterolateral leads Compared to ECG 05/03/2020 10:17:35 Ventricular-paced complex(es) or rhythm no longer present ST (T wave) deviation still present Electronically Signed On 05-04-2020 9:45:53 SPACE OPERATIONS OFFICER by Brady Bowen [email or web address] <ELECTRONICALLY SIGNED> By: Brady Bowen MD, FACC 05/04/20 0945 0757 0757 Brady Bowen MD, FAC /EPI
[2020-05-04 12:25] VITALS: BP 121/64
[2020-05-04 17:07] VITALS: BP 140/64
[2020-05-04 20:00] VITALS: BP 145/67
[2020-05-05 01:06] VITALS: BP 146/70
[2020-05-05 04:49] VITALS: BP 129/68
[2020-05-05 07:30] VITALS: BP 115/55
[2020-05-05] MEDS ORDERED: SORINE 80 MG TA80 M1 PO (08:41)
--- NOTE | 2020-05-05 09:37 | EKG ---
[place] [address] ELECTROCARDIOGRAM REPORT Name: VI STEWARD Room: [address] IN [facility].#: [id number] Admission: 05/03/20 Attend Phys: Brady Bowen, Discharge: Date of : 41 Date of Service: 05/05/20826 Report #: [id number] THIS REPORT FOR: //name// [facility] Test Date: 2020-05-05 Test Time: 08:27:51 Pat Name: VI STEWARD Department: Room: [facility] Gender: F Vice President Client Services: : 1945 Requested By: Debra Silva Order Number: [id number] Isaac MD: Valentin Lomeli Measurements Intervals [place] Rate: 68 P: SD: 177 QRS: 1 QRSD: 91 T: 74 QT: 447 QTc: 476 Interpretive Statements Atrial-paced rhythm Minimal ST depression, anterolateral leads Compared to ECG 05/04/2020 07:57:53 No significant changes Electronically Signed On 05-05-2020 9:37:16 FUND MANAGER by Valentin Lomeli [email or web address] <ELECTRONICALLY SIGNED> By: Valentin Lomeli MD, [facility] 05/05/20 0937 6 6 Valentin Lomeli MD, [facility] /EPI
[2020-05-05 13:23] VITALS: BP 115/55; BP 139/59
== END 2020-05-05 15:00 | disposition home or self-care (01) | DRG 309 ==
LOC: M.ERS 10:12 → M.2W 12:47 → M.TBA-ER 12:47 → M.2W 16:44
PROVIDERS: Emergency Medicine Emergency Medical Services; ADMIT Internal Medicine Cardiovascular Disease; ATTEND Internal Medicine Cardiovascular Disease
DX: I48.0 Paroxysmal atrial fibrillation (principal); D68.69 Other thrombophilia; I10 Essential (primary) hypertension; E78.5 Hyperlipidemia, unspecified; K21.9 Gastro-esophageal reflux disease without esophagitis; I25.10 Atherosclerotic heart disease of native coronary artery without angina pectoris; Z20.822 Contact with and (suspected) exposure to COVID-19; Z90.710 Acquired absence of both cervix and uterus; Z95.5 Presence of coronary angioplasty implant and graft; Z95.0 Presence of cardiac pacemaker; Z88.2 Allergy status to sulfonamides; Z88.8 Allergy status to other drugs, medicaments and biological substances; Z87.891 Personal history of nicotine dependence; Z79.899 Other long term (current) drug therapy

== ENCOUNTER 2021-02-15 18:26 | Inpatient (IN) | payer OTHER ==
[~2021-02-15] VITALS: Ht 167.6 cm; Wt 75.7 kg
[~2021-02-15 18:26] MED LIST changes: +AZELASTINE205.5 MCG/ NARES; +CALCIUM + VITA1 EACH PO; +LISINOPRIL5 MG PO; +ULTRAM 50MG TAB50 MG PO
[2021-02-15 18:27] VITALS: BP 136/97
[2021-02-15] MEDS ORDERED: ELIQUIS2.5 MG PO (18:37)
[2021-02-15 19:04] LABS: ABSOLUTE MONOCYTES 0.2 thou/uL (0.0-1.2); ABSOLUTE NEUTROPHILS 6.3 thou/uL (1.6-8.1); BASOPHILS 0.3 %; EOSINOPHILS 0.2 %; HEMATOCRIT 37.3 % (37.0-47.0); HEMOGLOBIN 12.3 gm/dL (12.0-15.0); LYMPHOCYTES 12.8 %; MCH 27.4 pg (26.0-34.0); MONOCYTES 3.2 %; MPV 7.9 fl. (7.2-11.1); NUCLEATED RBCS 0 /100WBC; PLATELET COUNT* 178 thou/uL (150-400); POLYS 83.5 %; RBC 4.49 mil/uL (4.20-5.00); RDW-CV 15.2 % (10.5-14.5); WBC 7.5 thou/uL (4.0-11.0)
[2021-02-15 19:17] LABS: APTT 37.2 Seconds (25.0-31.3); INR 1.2; PROTIME 11.8 Seconds (9.20-11.50)
[2021-02-15 19:18] LABS: ANION GAP 11 mmol/L (7-16); BUN 10 mg/dL (7-18); CALCIUM 8.1 mg/dL (8.5-10.1); CHLORIDE 100 mmol/L (98-107); CO2 25 mmol/L (21-32); CREATININE 0.6 mg/dL (0.6-1.3); GLUCOSE 101 mg/dL (70-99); SODIUM 136 mmol/L (136-145)
[2021-02-15 19:25] LABS: POTASSIUM 2.3 mmol/L (3.5-5.1)
[2021-02-15 19:32] LABS: ALBUMIN 2.4 g/dL (3.4-5.0); ALKALINE PHOSPHATASE 80 U/L (46-116); CK-MB MASS < 0.5 ng/mL (<0.5-3.6); LIPASE 184 U/L (73-393); MAGNESIUM 1.9 mg/dL (1.8-2.4); NT-PRO BRAIN NAT PEPTIDE 313 pg/mL (<300); SGOT 25 U/L (15-37); SGPT 17 U/L (30-65); TOTAL BILIRUBIN 0.4 mg/dL (<0.1-1.0); TOTAL PROTEIN 6.8 g/dL (6.4-8.2)
[2021-02-15 23:20] VITALS: BP 122/54
[2021-02-16 03:20] VITALS: BP 137/62
[2021-02-16 08:18] VITALS: BP 120/82
--- NOTE | 2021-02-16 08:20 | NUR ---
PT GIVEN BREAKFAST TRAY AT THIS TIME
--- NOTE | 2021-02-16 09:41 | EKG ---
[place] [address] ELECTROCARDIOGRAM REPORT Name: VI STEWARD Room: [place] [address] ADM IN [facility]#: [id number] Admission: 02/15/21 Attend Phys: Linda Reyes, Discharge: Date of : 41 Date of Service: 02/15/21 1825 Report #: [id number] THIS REPORT FOR: //name// [facility] ED Test Date: 2021-02-15 Test Time: 18:25:52 Pat Name: VI STEWARD Department: Room: [facility] Gender: F Free Lance Model: TJInder : 1945 Requested By: Alan Santana Order Number: [id number] MD: Tommy Ibarra Measurements Intervals [place] Rate: 146 P: 35 CO: 148 QRS: -14 QRSD: 77 T: 152 QT: 267 QTc: 416 Interpretive Statements atrial fibrillation Probable LVH with secondary repol abnrm Anterior Q waves, possibly due to LVH ST depression, probably rate related Compared to ECG 05/05/2020 08:27:51 Left ventricular hypertrophy now present Q waves now present Atrial-paced complex(es) or rhythm no longer present ST (T wave) deviation more prominent Electronically Signed On 02-16-2021 9:40:51 PLASTER MOLDER by Tommy Ibarra [email or web address] <ELECTRONICALLY SIGNED> By: Tommy Ibarra MD, [facility] 02/16/2140 24 24 Tommy Ibarra MD, [facility] /EPI
[2021-02-16 12:23] VITALS: BP 124/82
[2021-02-16 15:48] VITALS: BP 104/53
[2021-02-16 18:35] VITALS: BP 123/69
[2021-02-16 22:00] VITALS: BP 110/55
[2021-02-17 02:00] VITALS: BP 107/60
[2021-02-17 04:29] LABS: ANION GAP 9 mmol/L (7-16); BUN 16 mg/dL (7-18); CHLORIDE 105 mmol/L (98-107); CHOLESTEROL 93 mg/dL (<200); CO2 23 mmol/L (21-32); CREATININE 0.8 mg/dL (0.6-1.3); GLUCOSE 103 mg/dL (70-99); HDL CHOLESTEROL 39 mg/dL (>40); LDL CHOLESTEROL 38 mg/dL (<100); POTASSIUM 3.7 mmol/L (3.5-5.1); SODIUM 137 mmol/L (136-145); TC:HDL 2.4 Ratio (Not establshd); TRIGLYCERIDE 84 mg/dL (<150); VLDL 17 mg/dL (<40)
[2021-02-17 04:33] LABS: SERUM ASSESSMENT CLEAR
[2021-02-17 06:00] VITALS: BP 124/81
[2021-02-17 11:05] VITALS: BP 94/64
[2021-02-17 14:00] VITALS: BP 100/67
[2021-02-17 18:10] VITALS: BP 99/63
[2021-02-17 23:00] VITALS: BP 132/62
[2021-02-18 01:41] VITALS: BP 134/70
[2021-02-18 02:00] VITALS: BP 122/64
[2021-02-18 04:00] VITALS: BP 127/72
[2021-02-18 04:41] LABS: HEMATOCRIT 32.6 % (37.0-47.0); HEMOGLOBIN 10.8 gm/dL (12.0-15.0); MCH 27.4 pg (26.0-34.0); MCHC 33.2 g/dL (28.0-37.0); MCV 82.5 fL (80.0-100.0); MPV 7.5 fl. (7.2-11.1); RBC 3.95 mil/uL (4.20-5.00); WBC 5.6 thou/uL (4.0-11.0)
[2021-02-18 05:03] LABS: CREATININE 0.7 mg/dL (0.6-1.3); POTASSIUM 3.6 mmol/L (3.5-5.1)
--- NOTE | 2021-02-18 05:51 | NUR ---
RECEIVED REPORT FROM CAMILLE YUAN. PT TRANSFERRED TO 114. PT A&OX4. VSS. ADMISSION HISTORY & PHYSICAL ASSESSMENT COMPLETED AND CHARTED. PT ON O2 AT 2L NC. PT TRACING SR/VPACED ON TELE. PT UPSTANDBY TO BSC. FALL PRECAUTIONS IN PLACE. MAINTAINED ON ENHANCED PRECAUTIONS. CALL LIGHT WITHIN REACH.
[2021-02-18 07:39] VITALS: BP 144/80
[2021-02-18 12:51] VITALS: BP 142/70
[2021-02-18] MEDS ORDERED: SORINE 80 MG TA80 M1 PO (15:04)
[2021-02-18 18:14] VITALS: BP 142/70
--- NOTE | 2021-02-18 21:03 | NUR ---
1800 - Patient ready for d/c. Daughter coming to pick her up. Patient has IV d/c, waiter/waitress second class off, d/c papers signed and verbalized understanding. All personal belongings with patient. Taken out by wheelchair by nursing staff.
--- NOTE | 2021-02-19 11:47 | CON ---
[address] [address] CONSULTATION Name: VI STEWARD Araceli Room: [address] IN M.R.#: [id number] Admission: 02/15/21 Attend Phys: Linda Reyes MD Discharge: 02/18/21 Date of : 41 Report #: [id number] THIS REPORT FOR: cc: Tiago Hanson MD, Matthew W. MD Blick, David R. MD FAC ~ cc: Tiago Hanson MD DATE OF CONSULTATION: 02/16/2021 CARDIOLOGY CONSULTATION HISTORY OF PRESENT ILLNESS: The patient is a 75-year-old single white female who I was asked to see in the hospital today after she is noted to be in atrial fibrillation. The patient has an extensive and complicated past medical history. She has a long history of paroxysmal atrial fibrillation. She previously was on amiodarone, but complained of side effects and it was discontinued. She was switched to sotalol. She had a pacemaker inserted by myself back in 2019 for symptomatic bradycardia. After the pacemaker, she underwent radiofrequency ablation by Dr. Ware at [facility]. Her sotalol was discontinued. However, she had recurrent atrial fibrillation last year and was placed back on sotalol. She has been chronically anticoagulated with Eliquis. The patient continues to follow up with Dr. Ware in EP clinic. Dr. Ware just saw the patient in October when she was in sinus rhythm. He recommended continuing the sotalol. The patient also has a history of coronary artery disease. She had a drug-eluting stent placed in her LAD in 2013. Repeat cardiac catheterization in 2014 showed the stent to be widely patent. Echocardiogram a year ago showed an ejection fraction of 60%. Nuclear stress test in 2019 showed no evidence of ischemia. The patient is not very active at this time. She notes for the past couple of weeks everyone in her household tested positive for COVID-19. She has been fatigued, running a fever, no appetite. She has been coughing, shortness of breath. Last night, she felt her heart beating rapidly. She called EMS who brought here to [place] and admitted. I was asked to see her for further evaluation and treatment. She denied any chest pain, syncope, edema, bleeding. PAST MEDICAL HISTORY: She has had an appendectomy, hysterectomy, shoulder surgery last year. She has a history of hyperlipidemia. No diabetes or hypertension. CURRENT MEDICATIONS: Include Eliquis, Lipitor, omeprazole, sotalol, ____. ALLERGIES: SHE HAS AN ALLERGY TO SULFA DRUGS. FAMILY HISTORY: Her [place] [address] CONSULTATION Name: VI STEWARD Room: [address] IN M.R.#: [id number] Admission: 02/15/21 Attend Phys: Linda Reyes MD Discharge: 02/18/21 Date of : 41 Report #: [id number] SOCIAL HISTORY: She is , lives with her daughter in [place], [place]. Quit smoking years ago. No alcohol abuse. Review Of Systems: No history of stroke, asthma, liver disease, kidney disease, cancer, psychiatric illness, chronic skin condition. PHYSICAL EXAMINATION: GENERAL: Revealed an elderly female lying in bed. She appeared in no acute distress. VITAL SIGNS: Blood pressure 120/60, pulse is 100 and irregular. She is afebrile. HEENT: She was anicteric. Conjunctivae pink. Mucous membranes moist. NECK: Neck veins not distended. No carotid bruits. Neck is supple. CHEST: Clear to auscultation. HEART: Irregular, tachycardia. No significant murmur. ABDOMEN: Soft. EXTREMITIES: Had no pitting edema. Dorsalis pedis pulse 3+ bilaterally. SKIN: Cool and dry. NEUROLOGIC: Nonfocal. IMAGING: ECG last night showed atrial fibrillation with rapid ventricular response rate, nonspecific ST and T-wave changes. Her workup in the Emergency Room last night, she had a portable chest x-ray that showed normal heart size, mild vascular congestion, no infiltrates. LABORATORY DATA: Her lab work, potassium is only 2.3 on admission. Creatinine 0.6. Her liver function studies were normal. Albumin 2.4. High sensitivity troponin was only 43. BNP 313. TSH last year was 1.7, hemoglobin 12.3. Her COVID antigen stat test was positive. IMPRESSION AND RECOMMENDATIONS: 1. COVID-19. The patient is symptomatic despite receiving 2 injections of the vaccine. 2. Recurrent atrial fibrillation. I would increase sotalol to 120 mg twice a day. I would add diltiazem for rate control. I would continue anticoagulation with Eliquis. 3. Sick sinus syndrome. Previous pacemaker insertion. 4. Hyperlipidemia. The patient is on a statin drug. 5. Coronary artery disease with previous stent. No recent angina. [address] [place] [address] CONSULTATION Name: VI STEWARD Room: [address] [facility] IN M.R.#: [id number] Admission: 02/15/21 Attend Phys: Linda Reyes MD Discharge: 02/18/21 Date of : 41 Report #: [id number] 6. Previous tobacco abuse. 7. Hypertension. The patient has been on a beta blanca. <ELECTRONICALLY SIGNED> By: Tommy Ibarra MD, FACC 02/19/21 1147 1023 1355Damarisol Ibarra MD, FACC /nt
== END 2021-02-18 19:00 | disposition home or self-care (01) | DRG 178 ==
LOC: M.ERS 18:26 → M.TBA-ER 18:58 → M.ORTHSURG 02-18 02:26
PROVIDERS: Emergency Medicine; Internal Medicine; Internal Medicine Cardiovascular Disease; ADMIT Internal Medicine; ATTEND Internal Medicine
DX: U07.1 COVID-19 (principal); D68.69 Other thrombophilia; E44.0 Moderate protein-calorie malnutrition; I48.91 Unspecified atrial fibrillation; Z68.27 Body mass index [BMI] 27.0-27.9, adult; Z79.01 Long term (current) use of anticoagulants; Z88.8 Allergy status to other drugs, medicaments and biological substances; I25.10 Atherosclerotic heart disease of native coronary artery without angina pectoris; Z95.0 Presence of cardiac pacemaker; E78.5 Hyperlipidemia, unspecified; Z90.49 Acquired absence of other specified parts of digestive tract; I10 Essential (primary) hypertension; I49.5 Sick sinus syndrome